=== PATIENT | male | born 1950 | race Asian ===

== ENCOUNTER 2018-06-02 07:13 | Day surgery (SDC) | payer MEDICARE, SELFPAY ==
[2018-06-02] MEDS: PROPARACAINE 0.5% OPHTH SOL 2 DROPS EYE-OP (07:35)
[2018-06-02 07:43] VITALS: BP 185/84; PULSE 86; RESP 16; TEMP 36; O2SAT 100; BMI 25.0
[2018-06-02] MEDS: CATARACT EYE COMPOUND (10 DROPS/SYRINGE) 3 DROPS EYE-OP (07:51)
--- NOTE | 2018-06-02 08:15 | PM.PREOP ---
Pre-operative Note Interval Note Changes: No
--- NOTE | 2018-06-02 08:16 | P.OP_ITS ---
Operative Date/Time/Diagnoses Pre-op diagnosis: Cataract Left eye Post-op diagnosis: same Procedure & Clinicians Surgeon: Rito Mccormack Anesthesia Type: MAC +/- and Sedation Operative Notes Procedure in detail: Patient brought to the operating suite. Tetracaine drops placed in the left eye. Patient was prepped and draped in sterile manner. Wire lid speculum was placed in the eye. Betadine drops were placed on the eye. This was irrigated. Lidocaine jelly was placed on the eye. A paracentesis port was created with a side-port blade. 0.1 mL 1% preservative free lidocaine was injected into the anterior chamber. The anterior chamber was deepened with viscoelastic. 2.6 mm keratome was used to create a temporal clear corneal incision. Cystotome and Utrata forceps were used to create continuous tear capsulorrhexis. Balanced salt solution was used to hydro dissect the nucleus. The phacoemulsification handpiece was inserted and the nucleus was removed using the stop and chop technique. The irrigation aspiration handpiece was inserted and the remaining cortex was removed. Anterior chamber was deepened with viscoelastic. An Peter ZCB00 intraocular lens with a power of 19.5 was injected into the capsular bag. Irrigation aspiration handpiece was inserted and the remaining viscoelastic was removed. Incision was hydrated with balanced salt solution and found to be leak free with pressure with Weck- Ange sponges. 0.1 mL Vigamox injected anterior chamber. 0.3 mL Kenalog 10 mg was injected subconjunctivally. Lid speculum was removed. The patient left the operating room in excellent condition. Complications: none Condition: stable Disposition: same day surgery
--- NOTE | 2018-06-02 08:16 | P.OP.PRE_ITS ---
Pre-operative Note Interval Note Changes: No
[2018-06-02] MEDS: MOXIFLOXACIN OPHTH DROPS 3 ML BOTTLE 2 DROPS INJ (08:29)
[2018-06-02] MEDS: LIDOCAINE JELLY 2% 5 ML 1 APPLIC TOP (08:29)
[2018-06-02] MEDS: CHONDROIDTIN/SOD HYALURONATE 1.05 ML SYRINGE INTRAOCULA (08:29)
[2018-06-02] MEDS: PHENYLEPHRINE/LIDOCAINE VIAL (OR) 0.2 ML EYE-OP (08:29)
[2018-06-02] MEDS: TETRACAINE 0.5% OPHTH DROPS 15 ML 2 DROPS EYE-LEFT (08:30)
[2018-06-02] MEDS: TRIAMCINOLONE 50 MG/5 ML VIAL INJ (08:30)
[2018-06-02] MEDS: BALANCED SALT IRRIG SOLN NO.2 500 ML, EPINEPHrine 1 MG IRR (08:30)
[2018-06-02 08:45] VITALS: BP 144/82; PULSE 75; RESP 16; TEMP 36.3; O2SAT 100
== END 2018-06-02 08:58 ==
PROVIDERS: Visit Provider Ophthalmology
DX: H25.12 Age-related nuclear cataract, left eye (principal); E11.9 Type 2 diabetes mellitus without complications; Z79.84 Long term (current) use of oral hypoglycemic drugs; I10 Essential (primary) hypertension; I51.9 Heart disease, unspecified
CPT/HCPCS: J0171; J2250; J3010; J3301

== ENCOUNTER → 2018-06-17 10:05 | Outpatient (CLI) | payer MEDICARE, SELFPAY ==
[2018-06-17 11:39] LABS: BUN Creatinine Ratio 18.5 (6-22); Blood Urea Nitrogen 24 mg/dL (9-20); Calcium 9.5 mg/dL (8.4-10.2); Carbon Dioxide 26 mmol/L (22-32); Chloride 104 mmol/L (98-107); Estimated Glomerular Filt Rate 54.9 mL/min (>60); Glucose 217 mg/dL (80-110); HEMOLYSIS < 15 (0-50); Potassium 4.2 mmol/L (3.4-5.1); Sodium 143 mmol/L (137-145)
== END ==
PROVIDERS: Visit Provider Internal Medicine Cardiovascular Disease
DX: I10 Essential (primary) hypertension (principal)
CPT/HCPCS: 36415; 80048

== ENCOUNTER 2018-06-23 06:12 | Day surgery (SDC) | payer MEDICARE, SELFPAY ==
[2018-06-23] MEDS: PROPARACAINE 0.5% OPHTH SOL 2 DROPS EYE-OP (07:04)
[2018-06-23 07:05] VITALS: BP 166/74; PULSE 75; RESP 16; TEMP 36.4; O2SAT 100; BMI 24.3
[2018-06-23] MEDS: CATARACT EYE COMPOUND (10 DROPS/SYRINGE) 3 DROPS EYE-OP (07:10)
[2018-06-23] MEDS: LIDOCAINE JELLY 2% 5 ML 1 APPLIC TOP (07:58)
[2018-06-23] MEDS: CHONDROIDTIN/SOD HYALURONATE 1.05 ML SYRINGE INTRAOCULA (07:58)
[2018-06-23] MEDS: TETRACAINE 0.5% OPHTH DROPS 15 ML 2 DROPS EYE-RIGHT (07:59)
[2018-06-23] MEDS: TRIAMCINOLONE 50 MG/5 ML VIAL INJ (07:59)
[2018-06-23] MEDS: PHENYLEPHRINE/LIDOCAINE VIAL (OR) 0.2 ML EYE-OP (07:59)
[2018-06-23] MEDS: MOXIFLOXACIN OPHTH DROPS 3 ML BOTTLE 2 DROPS INJ (07:59)
[2018-06-23] MEDS: BALANCED SALT IRRIG SOLN NO.2 500 ML, EPINEPHrine 1 MG IRR (08:00)
--- NOTE | 2018-06-23 08:13 | P.OP.PRE_ITS ---
Pre-operative Note Interval Note Changes: No
--- NOTE | 2018-06-23 08:13 | PM.PREOP ---
Pre-operative Note Interval Note Changes: No
--- NOTE | 2018-06-23 08:14 | P.OP_ITS ---
Operative Date/Time/Diagnoses Pre-op diagnosis: Cataract Right eye Post-op diagnosis: same Procedure & Clinicians Procedure: Cataract Surgery Same procedure as scheduled: Yes Surgeon: Rito Mccormack Anesthesia Type: MAC +/- and Sedation Operative Notes Procedure in detail: Patient brought to the operating suite. Tetracaine drops placed in the right eye. Patient was prepped and draped in sterile manner. Wire lid speculum was placed in the eye. Betadine drops were placed on the eye. This was irrigated. Lidocaine jelly was placed on the eye. A paracentesis port was created with a side-port blade. 0.1 mL 1% preservative free lidocaine was injected into the anterior chamber. The anterior chamber was deepened with viscoelastic. 2.6 mm keratome was used to create a temporal clear corneal incision. Cystotome and Utrata forceps were used to create continuous tear capsulorrhexis. Balanced salt solution was used to hydro dissect the nucleus. The phacoemulsification handpiece was inserted and the nucleus was removed using the stop and chop technique. The irrigation aspiration handpiece was inserted and the remaining cortex was removed. Anterior chamber was deepened with viscoelastic. An Peter ZCB00 intraocular lens with a power of 18.5 was injected into the capsular bag. Irrigation aspiration handpiece was inserted and the remaining viscoelastic was removed. Incision was hydrated with balanced salt solution and found to be leak free with pressure with Weck- Ange sponges. 0.1 mL Vigamox injected anterior chamber. 0.3 mL Kenalog 10 mg was injected subconjunctivally. Lid speculum was removed. The patient left the operating room in excellent condition. Complications: none Condition: stable Disposition: same day surgery
[2018-06-23 08:21] VITALS: BP 130/70; PULSE 72; RESP 16; TEMP 36.6; O2SAT 100
--- NOTE | 2018-06-23 08:24 | SUR.PHASEII ---
son in law called, pt assisted to dress left in stable condition.
== END 2018-06-23 08:25 ==
LOC: OR 06:14
PROVIDERS: Visit Provider Ophthalmology
DX: H25.11 Age-related nuclear cataract, right eye (principal); E11.9 Type 2 diabetes mellitus without complications; Z79.84 Long term (current) use of oral hypoglycemic drugs; I10 Essential (primary) hypertension; I51.9 Heart disease, unspecified
CPT/HCPCS: J0171; J2250; J3010; J3301

== ENCOUNTER → 2018-12-11 06:41 | Outpatient (CLI) | payer MEDICARE, SELFPAY ==
[2018-12-11 08:53] LABS: Hemoglobin A1C% w Est Avg Glu 8.6 % (4.0-6.0)
[2018-12-11 09:07] LABS: Alanine Aminotransferase 70 IU/L (21-72); Albumin 4.4 g/dL (3.5-5.0); Albumin Globulin Ratio 1.5 (1.0-2.8); Alkaline Phosphatase 60 U/L (38-126); Aspartate Aminotransferase 55 IU/L (17-59); BUN Creatinine Ratio 13.9 (6-22); Bilirubin Total 0.6 mg/dL (0.2-1.3); Blood Urea Nitrogen 25 mg/dL (9-20); Calcium 9.4 mg/dL (8.4-10.2); Carbon Dioxide 22 mmol/L (22-32); Chloride 107 mmol/L (98-107); Estimated Glomerular Filt Rate 37.6 mL/min (>60); Globulin 2.9 g/dL (1.7-4.1); Glucose 94 mg/dL (80-110); HEMOLYSIS < 15 (0-50); Potassium 4.5 mmol/L (3.4-5.1); Sodium 141 mmol/L (137-145); Total Protein 7.3 g/dL (6.3-8.2)
== END ==
PROVIDERS: Visit Provider Student in an Organized Health Care Education/Training Program
DX: I10 Essential (primary) hypertension (principal); I25.10 Atherosclerotic heart disease of native coronary artery without angina pectoris; E11.65 Type 2 diabetes mellitus with hyperglycemia
CPT/HCPCS: 36415; 80053; 83036

== ENCOUNTER → 2020-10-06 08:36 | Outpatient (CLI) | payer MEDICARE, OTHER, SELFPAY ==
[2020-10-06] MEDS: COVID-19 VACC #1, MRNA(MOD) 100 MCG/0.5 ML VIAL IM (08:43)
== END ==
PROVIDERS: PCP Student in an Organized Health Care Education/Training Program; Visit Provider Internal Medicine
DX: Z23 Encounter for immunization (principal)
CPT/HCPCS: 0011A; 91301

== ENCOUNTER → 2020-11-03 08:44 | Outpatient (CLI) | payer MEDICARE, OTHER, SELFPAY ==
[2020-11-03] MEDS: COVID-19 VACC #2, MRNA(MOD) 100 MCG/0.5 ML VIAL IM (08:49)
== END ==
PROVIDERS: PCP Student in an Organized Health Care Education/Training Program; Visit Provider Internal Medicine
DX: Z23 Encounter for immunization (principal)
CPT/HCPCS: 0012A; 91301

== ENCOUNTER → 2021-12-13 08:02 | Outpatient (CLI) | payer OTHER, SELFPAY ==
[2021-12-13 08:29] LABS: Add Manual Diff / Slide Review NO; Basophils Absolute Auto 100 /uL (0-100); Basophils Percent Auto 1.3 % (0-2); Eosinophils Absolute Auto 400 /uL (0-450); Eosinophils Percent Auto 8.3 % (2-4); Hematocrit 32.3 % (41-53); Hemoglobin 10.9 g/dL (13.5-17.5); Lymphocytes Absolute Auto 800 /uL (1100-4500); Lymphocytes Percent Auto 16.3 % (25-40); Mean Corpuscular HGB Conc 33.7 % (30-36); Mean Corpuscular Hemoglobin 30.9 PG (26-34); Mean Corpuscular Volume 91.8 fL (80-100); Monocytes Absolute Auto 500 /uL (0-900); Monocytes Percent Auto 10.8 % (3-14); Neutrophils Absolute Auto 3100 /uL (1500-7000); Neutrophils Percent Auto 63.3 % (50-75); Platelet Count 170 X10^3/uL (150-400); Red Blood Cell Count 3.51 X10^6/uL (4.5-5.9); Red Cell Distribution Width 13.1 % (11.6-14.8); White Blood Cell Count 4.9 X10^3/uL (4.5-11.0)
[2021-12-13 09:19] LABS: Blood Urea Nitrogen 35 mg/dL (9-20); Calcium 9.2 mg/dL (8.4-10.2); Carbon Dioxide 21 mmol/L (22-32); Chloride 110 mmol/L (98-107); Cholesterol 79 mg/dL (140-199); Estimated Glomerular Filt Rate 27.7 mL/min (>60); Glucose 104 mg/dL (80-110); HDL Cholesterol 48 mg/dL (40-60); HEMOLYSIS 49 (0-50); LDL Cholesterol Calculated 20 mg/dL (<100); Potassium 4.3 mmol/L (3.4-5.1); Sodium 142 mmol/L (137-145); Triglycerides 56 mg/dL (35-150)
== END ==
PROVIDERS: PCP Student in an Organized Health Care Education/Training Program; Referring Provider Internal Medicine Cardiovascular Disease; Visit Provider Internal Medicine Cardiovascular Disease
DX: I25.10 Atherosclerotic heart disease of native coronary artery without angina pectoris (principal); E78.5 Hyperlipidemia, unspecified
CPT/HCPCS: 36415; 80048; 80061; 85025

== ENCOUNTER → 2022-11-08 06:54 | Outpatient (CLI) | payer OTHER, SELFPAY ==
[2022-11-08 08:06] LABS: Add Manual Diff / Slide Review NO; Basophils Absolute Auto 100 /uL (0-100); Basophils Percent Auto 0.9 % (0-2); Eosinophils Absolute Auto 400 /uL (0-450); Hematocrit 37.2 % (41-53); Hemoglobin 12.2 g/dL (13.5-17.5); Lymphocytes Absolute Auto 800 /uL (1100-4500); Lymphocytes Percent Auto 9.5 % (25-40); Mean Corpuscular HGB Conc 32.7 % (30-36); Mean Corpuscular Hemoglobin 29.6 PG (26-34); Mean Corpuscular Volume 90.5 fL (80-100); Monocytes Absolute Auto 600 /uL (0-900); Monocytes Percent Auto 7.2 % (3-14); Neutrophils Absolute Auto 6400 /uL (1500-7000); Neutrophils Percent Auto 77.4 % (50-75); Platelet Count 143 X10^3/uL (150-400); Red Blood Cell Count 4.11 X10^6/uL (4.5-5.9); White Blood Cell Count 8.2 X10^3/uL (4.5-11.0)
[2022-11-08 08:12] LABS: Hemoglobin A1C% w Est Avg Glu 12.5 % (4.0-6.0)
[2022-11-08 08:16] LABS: Alanine Aminotransferase 27 IU/L (<50); Albumin 4.3 g/dL (3.5-5.0); Albumin Globulin Ratio 1.6 (1.0-2.8); Alkaline Phosphatase 68 U/L (38-126); Aspartate Aminotransferase 23 IU/L (17-59); BUN Creatinine Ratio 12.4 (6-22); Bilirubin Total 0.8 mg/dL (0.2-1.3); Blood Urea Nitrogen 24 mg/dL (9-20); Calcium 8.7 mg/dL (8.4-10.2); Carbon Dioxide 23 mmol/L (22-32); Chloride 102 mmol/L (98-107); Cholesterol 86 mg/dL (140-199); Estimated Glomerular Filt Rate 36 mL/min (>60); Globulin 2.7 g/dL (1.7-4.1); Glucose 230 mg/dL (80-110); HDL Cholesterol 50 mg/dL (40-60); HEMOLYSIS < 15 (0-50); LDL Cholesterol Calculated 18 mg/dL (<100); Potassium 4.1 mmol/L (3.4-5.1); Sodium 136 mmol/L (137-145); Triglycerides 89 mg/dL (35-150)
[2022-11-08 08:42] LABS: Creatinine Urine Random 46.4 mg/dL
[2022-11-08 09:00] LABS: Microalbumin Urine Random 31.6 mg/dL (0-1.6)
== END ==
PROVIDERS: PCP Student in an Organized Health Care Education/Training Program; Referring Provider Student in an Organized Health Care Education/Training Program; Visit Provider Student in an Organized Health Care Education/Training Program
DX: E11.59 Type 2 diabetes mellitus with other circulatory complications (principal); E78.5 Hyperlipidemia, unspecified; I10 Essential (primary) hypertension
CPT/HCPCS: 36415; 80053; 80061; 82043; 82570; 83036; 85025

== ENCOUNTER → 2022-12-10 07:05 | Outpatient (CLI) | payer OTHER, SELFPAY ==
[2022-12-10 10:25] LABS: Vitamin D 25 Hydroxy (D3) 42.7 ng/mL (30.0-100.0)
[2022-12-12 05:22] LABS: Fructosamine 494 umol/L (0-285)
== END ==
PROVIDERS: PCP Student in an Organized Health Care Education/Training Program; Referring Provider Student in an Organized Health Care Education/Training Program; Visit Provider Student in an Organized Health Care Education/Training Program
DX: N18.32 Chronic kidney disease, stage 3b (principal); E11.59 Type 2 diabetes mellitus with other circulatory complications; Z79.899 Other long term (current) drug therapy
CPT/HCPCS: 36415; 82306; 82985

== ENCOUNTER → 2023-03-13 06:45 | Outpatient (CLI) | payer OTHER, SELFPAY ==
[2023-03-14 05:54] LABS: Labcorp Hemoglobin (Hb) A1c 11.2 % (4.8-5.6)
== END ==
PROVIDERS: Student in an Organized Health Care Education/Training Program; PCP Pediatrics; Referring Provider Pediatrics; Visit Provider Pediatrics
DX: E11.59 Type 2 diabetes mellitus with other circulatory complications (principal)
CPT/HCPCS: 36415; 83036

== ENCOUNTER → 2023-08-22 08:53 | Outpatient (CLI) | payer OTHER, SELFPAY ==
[2023-08-22 09:59] LABS: Add Manual Diff / Slide Review NO; Basophils Absolute Auto 100 /uL (0-100); Basophils Percent Auto 1.8 % (0-2); Eosinophils Absolute Auto 300 /uL (0-450); Eosinophils Percent Auto 5.3 % (2-4); Hematocrit 35.7 % (41-53); Lymphocytes Absolute Auto 600 /uL (1100-4500); Mean Corpuscular HGB Conc 33.8 % (30-36); Mean Corpuscular Hemoglobin 30.2 PG (26-34); Mean Corpuscular Volume 89.3 fL (80-100); Monocytes Absolute Auto 500 /uL (0-900); Monocytes Percent Auto 8.1 % (3-14); Neutrophils Absolute Auto 4400 /uL (1500-7000); Neutrophils Percent Auto 74.8 % (50-75); Platelet Count 204 X10^3/uL (150-400); Red Blood Cell Count 3.99 X10^6/uL (4.5-5.9); Red Cell Distribution Width 12.6 % (11.6-14.8); White Blood Cell Count 5.8 X10^3/uL (4.5-11.0)
[2023-08-22 10:27] LABS: BUN Creatinine Ratio 12.9 (6-22); Blood Urea Nitrogen 24 mg/dL (9-20); Calcium 9.8 mg/dL (8.4-10.2); Carbon Dioxide 23 mmol/L (22-32); Chloride 97 mmol/L (98-107); Estimated Glomerular Filt Rate 38 mL/min (>60); Glucose 452 mg/dL (80-110); HEMOLYSIS < 15 (0-50); Potassium 4.7 mmol/L (3.4-5.1); Sodium 133 mmol/L (137-145)
[2023-08-22 11:17] LABS: Hemoglobin A1C% w Est Avg Glu > 14.0 % (4.0-6.0)
== END ==
PROVIDERS: PCP Family Medicine; Referring Provider Family Medicine; Visit Provider Family Medicine
DX: N18.9 Chronic kidney disease, unspecified (principal); E11.59 Type 2 diabetes mellitus with other circulatory complications; D63.1 Anemia in chronic kidney disease; N18.32 Chronic kidney disease, stage 3b; E78.5 Hyperlipidemia, unspecified; I10 Essential (primary) hypertension; I25.10 Atherosclerotic heart disease of native coronary artery without angina pectoris
CPT/HCPCS: 36415; 80048; 83036; 85025

== ENCOUNTER 2023-11-23 10:46 | Emergency (ER) | payer OTHER, SELFPAY ==
[2023-11-23] VITALS (9 sets, daily range): BP systolic 122–168; BP diastolic 57–73; PULSE 71–97; RESP 18–28; TEMP 36.8; O2SAT 96–100; BMI 22.8
--- NOTE | 2023-11-23 10:54 | DI.RAD.S_ITS ---
PROCEDURE: XR CHEST 1V INDICATIONS: chest pain TECHNIQUE: One view of the chest was acquired. COMPARISON: None. FINDINGS: The patient is rotated to the left for this study. Surgical changes and devices: Sternotomy wires and mediastinal clips are seen. Lungs and pleura: An incomplete inspiratory result is noted, causing a crowded appearance to the lung markings. No focal infiltrates are seen. No pneumothorax or significant pleural effusions are seen. Mediastinum: Mediastinal contours appear normal. Heart size is normal. Bones and chest wall: No suspicious bony lesions. Age-appropriate bony degenerative changes are seen. Overlying soft tissues appear unremarkable. IMPRESSION: Limited portable chest examination, without a significant cardiopulmonary abnormality identified. Postoperative and degenerative changes are seen. Dictated by: Irving Moreland M.D. on 11/23/2023 at 10:20 Approved by: Irving Moreland M.D. on 11/23/2023 at 10:21
--- NOTE | 2023-11-23 11:27 | ED_ITS ---
HPI - General Adult General Chief complaint: Weakness Stated complaint: unable to walk fever loss of appetite Time Seen by Provider: 11/23/23 10:54 Source: patient and family Mode of arrival: Wheelchair History of Present Illness HPI narrative: Patient is a 73-year-old insulin-dependent diabetic male with high blood pressure he was here for evaluation of dizziness. He states that the symptoms started this morning. It was not a room spinning sensation just more of a lightheadedness. He also reports a loss of his appetite and a fever. He denies headache, vision changes, sore throat, sinus congestion, chest pain, palpitations, abdominal pain, nausea vomiting, urinary symptoms, change in bowel habits, rash. He has never had symptoms like this in the past. He states his symptoms are worse when he stands up and better when he is lying down. Related Data Home Medications Medication Instructions Recorded Confirmed aspirin 81 mg tablet,delayed 81 mg PO DAILY 06/02/18 11/18/23 release (Aspir-) triamcinolone acetonide 0.1 % 1 applic topical DAILY 11/12/22 11/18/23 topical cream ferrous sulfate 325 mg (65 mg 325 mg PO DAILY 03/17/23 11/18/23 iron) tablet insulin U-500 syringe-needle 1/2 03/17/23 11/18/23 mL 31 gauge x 15/64 (BD Insulin Syringe U-500) pen needle, diabetic 31 gauge x 03/17/23 11/18/2311/28 (1st Tier Unifine Pentips Plus) Previous Rx's Medication Instructions Recorded Insulin regular sliding scale See Rx Instructions .Route 11/12/22 .COMPLEX #1 ea OneTouch Verio test strips (blood #200 ea 12/17/22 sugar diagnostic) amlodipine 10 mg tablet 10 mg PO DAILY #90 tabs 08/22/23 atorvastatin 80 mg tablet 80 mg PO BEDTIME #90 tabs 08/22/23 cholecalciferol (vitamin D3) 50 50 mcg PO DAILY #90 caps 08/22/23 mcg (2,000 unit) capsule clopidogrel 75 mg tablet 75 mg PO DAILY #90 tabs 08/22/23 glipizide 2.5 mg tablet, extended 2.5 mg PO DAILY diabetes #90 tabs 08/22/23 release 24 hr metoprolol succinate 50 mg 50 mg PO DAILY #90 tabs 08/22/23 tablet,extended release 24 hr insulin NPH isoph U-100 human 100 18 unit (0.18 mL) SUBCUT BID #30 mL 11/18/23 unit/mL subcutaneous suspension (Novolin N NPH U-100 Insulin isophane) insulin regular human 100 unit/mL 12 unit (0.12 mL) SUBCUT TIDWMEAL 11/18/23 injection solution (Novolin R diabetes #30 mL Regular U-100 Insulin) Allergies Allergy/AdvReac Type Severity Reaction Status Date / Time No Known Drug Allergies Allergy Verified 11/18/23 10:46 Review of Systems Review of Systems ROS Unobtainable: All systems reviewed & are unremarkable except as noted in HPI and below Patient History Medical History CKD stage 3 secondary to diabetes Type 2 diabetes mellitus with hyperglycemia, with long-term current use of insulin CKD stage G3b/A3, GFR 30-44 and albumin creatinine ratio >300 mg/g ASVD (arteriosclerotic vascular disease) Atherosclerotic heart disease Surgical History (Updated 06/22/19 @ 10:10 by Octavia Souza CMA) Anesthesia Cataract (~2017) History of quadruple bypass (~04/2000) Social History marital status: household members: spouse and family pets and animals: No education level: college occupational status: other current occupational exposures/hazards: No (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) maria isabel/lutheran: Yazdanism seatbelt use: always Smoking Status: Never smoker alcohol intake: current substance use type: does not use during the past year weight has: remained stable Type(s) of exercise: walking frequency: 3-4 times per week duration: 30-45 minutes/day additional social history: Alcohol intake: Rare/Occasional Physical activities: Gardening/yard work Smoking Status: Never smoker alcohol intake frequency: holidays/special occasions only Substance Use Type: does not use Exam Initial Vital Signs Initial Vital Signs: Vital Signs Temperature 98.2 F 11/23/23 11:00 Pulse Rate 97 H 11/23/23 11:00 Respiratory Rate 28 H 11/23/23 11:00 Blood Pressure 168/73 H 11/23/23 11:00 Pulse Oximetry 100 11/23/23 11:00 Oxygen Delivery Method Room Air 11/23/23 11:00 Const General: cooperative, comfortable and No ill appearing HENIL Head: normal to inspection and normocephalic Resp Effort & Inspection: normal respiratory effort Auscultation: clear to auscultation bilaterally Cardio Rate: regular rate Rhythm: regular rhythm GI Inspection: normal to inspection and non-distended Skin General: no rashes or lesions noted Neuro General: patient alert, patient awake, patient oriented x3 and moves all extremities Cognition: normal cognition Speech: speech normal Extrem General: normal to inspection and capillary refill normal Course Orders Ordered: ED Orders 11/23/23 10:20 Complete Blood Count AUTO DIFF Stat Comprehensive Metabolic Panel Stat Lactate (Lactic Acid) Stat Lipase Stat Magnesium Stat PTT Partial Thromboplastin Brian Stat Procalcitonin Stat Prothrombin Time INR Stat Troponin & CK Cardiac Panel Stat 11/23/23 10:30 Covid-19 + FLU A/B + RSV - PCR Stat 11/23/23 10:52 Urinalysis and Microscopic Stat 11/23/23 10:54 XR chest 1V Stat 11/23/23 10:59 Urine Culture Stat 11/23/23 11:38 EKG-12 Lead Stat 11/23/23 12:00 Blood Culture Stat Discontinued Medications Aspirin (Aspirin 81 Mg Chew Tab) 324 mg PO NOW ONE Stop: 11/23/23 10:55 Sodium Chloride (Normal Saline 0.9%) 1,000 mls @ 1,000 mls/hr IV BOLUS ONE Stop: 11/23/23 12:31 Last Infusion: 11/23/23 13:00 Dose: Infused Documented By: Admin: 11/23/23 11:46 Dose: 1,000 mls/hr Documented By: HIRO Vital Signs Vital signs: Vital Signs - 8 hr 11/23/23 11:00 11/23/23 11:06 11/23/23 11:30 Temperature 98.2 F Pulse Rate 97 H 84 82 Respiratory Rate 28 H Blood Pressure 168/73 H Pulse Oximetry 100 98 96 Oxygen Delivery Method Room Air 11/23/23 12:00 11/23/23 12:30 11/23/23 13:00 Temperature Pulse Rate 75 73 74 Respiratory Rate 18 18 19 Blood Pressure Pulse Oximetry 99 99 100 Oxygen Delivery Method Medical Decision Making Lab Data 11/23/23 10:20 11/23/23 10:20 Labs: Lab Results 11/23/23 11/23/23 11/23/23 Range/Units 10:20 10:30 10:52 WBC 9.5 (4.5-11.0) X10^3/uL RBC 4.22 L (4.5-5.9) X10^6/uL Hgb 13.0 L (13.5-17.5) g/dL Hct 38.8 L (41-53) % MCV 91.9 (80-100) fL MCH 30.7 (26-34) PG MCHC 33.4 (30-36) % RDW 13.0 (11.6-14.8) % Plt Count 177 (150-400) X10^3/uL Neut % (Auto) 94.6 H (50-75) % Lymph % (Auto) 1.8 L (25-40) % [place] % (Auto) 3.1 (3-14) % Eos % (Auto) 0.3 L (2-4) % Baso % (Auto) 0.2 (0-2) % Neut # (Auto) 9000 H (7660-4265) /uL Lymph # (Auto) 200 L (0678-4002) /uL [place] # (Auto) 300 (0-900) /uL Eos # (Auto) 0 (0-450) /uL Baso # (Auto) 0 (0-100) /uL PT 11.6 (9.4-12.5) SECONDS INR 1.0 (0.9-1.3) APTT 30 (25.1-36.5) SECONDS Sodium 132 L (137-145) mmol/L Potassium 4.1 (3.4-5.1) mmol/L Chloride 100 (98-107) mmol/L Carbon Dioxide 26 (22-32) mmol/L BUN 27 H (9-20) mg/dL Creatinine 2.06 H (0.66-1.25) mg/dL Estimated GFR 33 L (>60) mL/min BUN/Creatinine Ratio 13.1 (6-22) Glucose 390 H (80-110) mg/dL Lactate 1.8 (0.7-2.1) mmol/L Calcium 9.3 (8.4-10.2) mg/dL Magnesium 2.1 (1.6-2.3) mg/dL Total Bilirubin 0.7 (0.2-1.3) mg/dL AST 25 (17-59) IU/L ALT 23 (<50) IU/L Alkaline Phosphatase 141 H (38-126) U/L Total Creatine Kinase 122 (55-170) U/L Troponin I 0.014 (0.01-0.034) ng/mL Total Protein 7.8 (6.3-8.2) g/dL Albumin 4.1 (3.5-5.0) g/dL Globulin 3.7 (1.7-4.1) g/dL Albumin/Globulin Ratio 1.1 (1.0-2.8) Lipase 159 (23-300) U/L Procalcitonin 1.21 H (<0.5) ng/mL Urine Color Yellow Urine Appearance Clear Urine pH 7.0 (4.5-8.0) Ur Specific [place] 1.010 (1.000-1.035) Urine Protein 1+ H (Negative) Urine Glucose (UA) 3+ H (Negative) g/dL Urine Ketones Trace H (NEGATIVE) Urine Occult Blood 2+ H (Negative) Urine Nitrate Negative (Negative) Urine Bilirubin Negative (NEGATIVE) Urine Urobilinogen 0.2 (0.2) E.U./dL Ur Leukocyte Esterase Negative (NEGATIVE) Urine RBC 5-10/hpf H (0-5/HPF) Urine WBC 0-1/hpf (0-5/HPF) Ur Squamous Epith Cells None seen (0-5/HPF) Amorphous Sediment 1+ Urine Bacteria None seen (None) Ur Culture Indicated? Cult not indicated Vol Urine Centrifuged 10ml (spun) SARS-CoV-2 (PCR) Negative (Negative) Influenza A (RT-PCR) Flu a negative (NEGATIVE) Influenza B (RT-PCR) Flu b negative (NEGATIVE) RSV (PCR) Negative (Negative) Imaging Data Chest x-ray: Radiologist's Impression: PROCEDURE: XR CHEST 1V INDICATIONS: chest pain TECHNIQUE: One view of the chest was acquired. COMPARISON: None. FINDINGS: The patient is rotated to the left for this study. Surgical changes and devices: Sternotomy wires and mediastinal clips are seen. Lungs and pleura: An incomplete inspiratory result is noted, causing a crowded appearance to the lung markings. No focal infiltrates are seen. No pneumothorax or significant pleural effusions are seen. Mediastinum: Mediastinal contours appear normal. Heart size is normal. Bones and chest wall: No suspicious bony lesions. Age-appropriate bony degenerative changes are seen. Overlying soft tissues appear unremarkable. IMPRESSION: Limited portable chest examination, without a significant cardiopulmonary abnormality identified. Postoperative and degenerative changes are seen. ECG Data Attestation: I personally reviewed and interpreted this ECG as follows: Interpretation: Sinus rhythm Ventricular rate 80 Normal axis LVH Nonspecific ST T wave changes MDM Narrative Medical decision making narrative: Labs appear well. EKG is unremarkable. After fluids patient was able to ambulate without difficulty. He states that his lightheadedness is much better. Low suspicion for CVA/TIA. Low suspicion for ACS. Low suspicion for arrhythmia all as the cause of his symptoms. Potentially a degree of dehydration. Patient is safe for discharge home. Have him continue to take all of his medications. He was given return precautions. He expressed understanding and agreement. Discharge Plan Departure Patient Disposition: Home Clinical Impression: Postural lightheadedness Instructions: DI for Dizziness-Nonvertigo Activity Restrictions/Additional Instructions: Recommend that you continue to take all of your medications as directed. Contact your primary care doctor for a follow-up. Return to the emergency department for new or worsening symptoms. Prescriptions: No Action (DME) OneTouch Verio test strips Strip See Rx Instructions .Route Qty: 200 11RF Rx Instructions: As directed amlodipine 10 mg tablet 10 mg PO DAILY Qty: 90 3RF atorvastatin 80 mg tablet 80 mg PO BEDTIME Qty: 90 3RF cholecalciferol (vitamin D3) 50 mcg (2,000 unit) capsule 50 mcg PO DAILY Qty: 90 3RF clopidogrel 75 mg tablet 75 mg PO DAILY Qty: 90 3RF metoprolol succinate 50 mg tablet extended release 24 hr 50 mg PO DAILY Qty: 90 3RF glipizide 2.5 mg tablet extended release 24hr 2.5 mg PO DAILY Qty: 90 3RF Rx Instructions: must take with food triamcinolone acetonide 0.1 % cream 1 applic topical DAILY Insulin regular sliding scale See Rx Instructions .ROUTE .COMPLEX Qty: 1 0RF Rx Instructions: 2 units for every 50mg/dL of glucose over 200 ferrous sulfate 325 mg (65 mg iron) tablet 325 mg PO DAILY (DME) pen needle, diabetic [1st Tier Unifine Pentips Plus] 31 gauge x 3/16 needle See Rx Instructions .Route Rx Instructions: Checking Blood Sugar BID every other day (DME) BD Insulin Syringe U-500 1/2 mL 31 gauge x 15/64 syringe See Rx Instructions .Route Rx Instructions: Checking BS BID every other day Novolin N NPH U-100 Insulin 100 unit/mL suspension 18 unit SUBCUT BID Qty: 30 3RF Novolin R Regular U100 Insulin 100 unit/mL solution 12 unit SUBCUT TIDWMEAL MDD 30 units Qty: 30 11RF Rx Instructions: before meals aspirin [Aspir-81] 81 mg Tablet,Delayed Release (Dr/Ec) 81 mg PO DAILY Referrals: Urbano Estes DO [Primary Care Provider] - Stand Alone Forms: Patient Portal/API
[2023-11-23 11:42] LABS: Add Manual Diff / Slide Review NO; Basophils Absolute Auto 0 /uL (0-100); Basophils Percent Auto 0.2 % (0-2); Eosinophils Absolute Auto 0 /uL (0-450); Eosinophils Percent Auto 0.3 % (2-4); Hematocrit 38.8 % (41-53); Lymphocytes Absolute Auto 200 /uL (1100-4500); Lymphocytes Percent Auto 1.8 % (25-40); Mean Corpuscular HGB Conc 33.4 % (30-36); Mean Corpuscular Hemoglobin 30.7 PG (26-34); Mean Corpuscular Volume 91.9 fL (80-100); Monocytes Absolute Auto 300 /uL (0-900); Monocytes Percent Auto 3.1 % (3-14); Neutrophils Absolute Auto 9000 /uL (1500-7000); Neutrophils Percent Auto 94.6 % (50-75); Platelet Count 177 X10^3/uL (150-400); Red Blood Cell Count 4.22 X10^6/uL (4.5-5.9); White Blood Cell Count 9.5 X10^3/uL (4.5-11.0)
[2023-11-23] MEDS: SODIUM CHLORIDE 0.9% 1,000 ML 1000 ML IV (11:46)
[2023-11-23 11:53] LABS: Prothrombin Time 11.6 SECONDS (9.4-12.5)
[2023-11-23 11:55] LABS: Lactate (Lactic Acid) 1.8 mmol/L (0.7-2.1)
[2023-11-23 11:56] LABS: Alanine Aminotransferase 23 IU/L (<50); Albumin 4.1 g/dL (3.5-5.0); Albumin Globulin Ratio 1.1 (1.0-2.8); Alkaline Phosphatase 141 U/L (38-126); Aspartate Aminotransferase 25 IU/L (17-59); BUN Creatinine Ratio 13.1 (6-22); Bilirubin Total 0.7 mg/dL (0.2-1.3); Blood Urea Nitrogen 27 mg/dL (9-20); Calcium 9.3 mg/dL (8.4-10.2); Carbon Dioxide 26 mmol/L (22-32); Chloride 100 mmol/L (98-107); Creatine Kinase 122 U/L (55-170); Estimated Glomerular Filt Rate 33 mL/min (>60); Globulin 3.7 g/dL (1.7-4.1); Glucose 390 mg/dL (80-110); HEMOLYSIS < 15 (0-50); Lipase 159 U/L (23-300); Magnesium 2.1 mg/dL (1.6-2.3); PTT Partial Thromboplastin Tim 30 SECONDS (25.1-36.5); Potassium 4.1 mmol/L (3.4-5.1); Sodium 132 mmol/L (137-145); Total Protein 7.8 g/dL (6.3-8.2)
[2023-11-23 12:08] LABS: Troponin I 0.014 ng/mL (0.01-0.034)
[2023-11-23 12:13] LABS: Procalcitonin 1.21 ng/mL (<0.5)
[2023-11-23 12:18] LABS: Appearance Urine UA CLEAR; Bilirubin Urine UA NEGATIVE (NEGATIVE); Color Urine UA YELLOW; Glucose Urine UA 3+ g/dL (Negative); Ketones Urine UA TRACE (NEGATIVE); Leukocyte Esterase Urine UA NEGATIVE (NEGATIVE); Nitrite Urine UA NEGATIVE (Negative); Occult Blood Urine UA 2+ (Negative); Protein Urine UA 1+ (Negative); Urobilinogen Urine UA 0.2 E.U./dL (0.2)
[2023-11-23 12:34] LABS: Amorphous Sediment Urine 1+; Bacteria Urine None Seen; Culture Indicated Urine Cult Not Indicated; RBC Urine 5-10/HPF (0-5/HPF); Squamous Epithelial Cell Urine None Seen (0-5/HPF); Urine Volume 10mL (spun); WBC Urine 0-1/HPF (0-5/HPF)
[2023-11-23 12:41] LABS: Influenza A - CEPHEID Flu A NEGATIVE (NEGATIVE); Influenza B - CEPHEID Flu B NEGATIVE (NEGATIVE); Respiratory Syncytial Virus Negative (Negative)
[2023-11-23 12:44] LABS: COVID-19 CEPHEID 4-PLEX PCR Negative (Negative)
== END 2023-11-23 14:17 | disposition home or self-care (01) ==
PROVIDERS: Emergency Provider Emergency Medicine; PCP Family Medicine
DX: R42 Dizziness and giddiness (principal); R07.9 Chest pain, unspecified; Z20.822 Contact with and (suspected) exposure to COVID-19
CPT/HCPCS: 0241U; 36415; 71045; 80053; 81001; 82550; 83605; 83690; 83735; 84145; 84484; 85025; 85610; 85730; 87040; 87077; 87086; 87186; 93005; 93010; 99284

== ENCOUNTER 2023-12-20 07:58 | Inpatient (IN) | payer OTHER, SELFPAY ==
[2023-12-20] VITALS (18 sets, daily range): BP systolic 112–168; BP diastolic 51–120; PULSE 67–125; RESP 16–44; TEMP 36.1–39.2; O2SAT 89–100; BMI 21.8; BMI 21.1
--- NOTE | 2023-12-20 08:08 | ED_ITS ---
HPI - Weakness General Chief complaint: Weakness Stated complaint: fever, sent by [facility], low bp Time Seen by Provider: 12/20/23 08:08 History of Present Illness HPI Narrative: Patient is a 73-year-old male history of hypertension hyperlipidemia uncontrolled diabetes, chronic kidney disease presents today with ongoing weakness and cyclic fevers. Patient spent September and October in the [facility] it was reported that he drank excessive amounts of alcohol while he was there when he returned in November he started noticing cyclic fevers. However a temperature was never actually taken fevers documented by patient's 's hand on his forehead. He denies any weight he sometimes gets cold and. No cough no nausea vomiting or abdominal pain. No chest pain. Here with son-in-law. Patient was seen in the ED for November for high blood pressure and dizziness at that time he was reporting loss of appetite and fever. He has no focal deficits. Thought he was dehydrated and he was ultimately discharged home. He has also seen his PCP with a hemoglobin A1c greater than 14. Patient has no specific complaints today except for ongoing weakness and cyclic fevers which are actually undocumented. He initially went to the walk-in clinic found to be mildly hypotensive and sent to the ED for further evaluation. Related Data Home Medications Medication Instructions Recorded Confirmed aspirin 81 mg tablet,delayed 81 mg PO DAILY 06/02/18 12/20/23 release (Aspir-) triamcinolone acetonide 0.1 % 1 applic topical DAILY 11/12/22 12/20/23 topical cream ferrous sulfate 325 mg (65 mg 325 mg PO DAILY 03/17/23 12/20/23 iron) tablet insulin U-500 syringe-needle /2 03/17/23 12/20/23 mL 31 gauge x 15/64 (BD Insulin Syringe U-500) pen needle, diabetic 31 gauge x 03/17/23 12/20/23 3/16 (1st Tier Unifine Pentips Plus) losartan 25 mg tablet 25 mg PO DAILY 12/20/23 12/20/23 Previous Rx's Medication Instructions Recorded Insulin regular sliding scale See Rx Instructions .Route 11/12/22 .COMPLEX #1 ea OneTouch Verio test strips (blood #200 ea 12/17/22 sugar diagnostic) amlodipine 10 mg tablet 10 mg PO DAILY #90 tabs 08/22/23 atorvastatin 80 mg tablet 80 mg PO BEDTIME #90 tabs 08/22/23 cholecalciferol (vitamin D3) 50 50 mcg PO DAILY #90 caps 08/22/23 mcg (2,000 unit) capsule clopidogrel 75 mg tablet 75 mg PO DAILY #90 tabs 08/22/23 glipizide 2.5 mg tablet, extended 2.5 mg PO DAILY diabetes #90 tabs 08/22/23 release 24 hr metoprolol succinate 50 mg 50 mg PO DAILY #90 tabs 08/22/23 tablet,extended release 24 hr insulin NPH isoph U-100 human 100 18 unit (0.18 mL) SUBCUT BID #30 mL 11/18/23 unit/mL subcutaneous suspension (Novolin N NPH U-100 Insulin isophane) insulin regular human 100 unit/mL 12 unit (0.12 mL) SUBCUT TIDWMEAL 11/18/23 injection solution (Novolin R diabetes #30 mL Regular U-100 Insulin) Allergies Allergy/AdvReac Type Severity Reaction Status Date / Time No Known Drug Allergies Allergy Verified 12/20/23 08:25 Patient History Medical History CKD stage 3 secondary to diabetes Type 2 diabetes mellitus with hyperglycemia, with long-term current use of insulin CKD stage G3b/A3, GFR 30-44 and albumin creatinine ratio >300 mg/g ASVD (arteriosclerotic vascular disease) Atherosclerotic heart disease Surgical History Anesthesia Cataract (~2017) History of quadruple bypass (~04/2000) Social History marital status: household members: spouse and family pets and animals: No education level: college occupational status: other current occupational exposures/hazards: 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) maria isabel/tenriism: Mosque seatbelt use: always Smoking Status: Never smoker alcohol intake: current substance use type: does not use during the past year weight has: remained stable Type(s) of exercise: walking frequency: 3-4 times per week duration: 30-45 minutes/day additional social history: Alcohol intake: Rare/Occasional Physical activities: Gardening/yard work Smoking Status: Never smoker alcohol intake frequency: holidays/special occasions only Substance Use Type: does not use Exam Initial Vital Signs Initial Vital Signs: Vital Signs Pulse Rate 95 H 12/20/23 08:06 Pulse Oximetry 99 12/20/23 08:06 GENERAL: Alert 73-year-old male appears mildly weak and in [no acute] distress. HEENT: Head atraumatic,EOMI, pupils reactive, face symmetric, [moist] mucous membranes CARDIOVASCULAR: Regular rate and rhythm without murmurs, rubs or gallops. RESPIRATORY: Breath sounds equal bilaterally, no wheezes rales or rhonchi. ABDOMEN: Soft, nontender. Normoactive bowel sounds all 4 quadrants. No guarding or rebound. EXTREMITIES: Normal range of motion, no clubbing or edema. Neurovascularly intact NEUROLOGICAL: Alert and oriented x4.Normal gait and speech. Cranial nerves II through XII grossly intact. [Good [id number], good [id number], strength equal bilaterally, no dysarthria or aphasia, sensation in tact to soft touch bilaterally, no visual changes, no facial droop] SKIN: Warm, dry, no laceration, no petechiae, no rashes or lesions. Course Orders Ordered: ED Orders 12/20/23 08:11 CT head/brain wo con Stat XR chest 1V Stat EKG-12 Lead Stat 12/20/23 08:12 A1C [Hemoglobin A1C% w Est Avg Glu] Stat Complete Blood Count AUTO DIFF Stat Comprehensive Metabolic Panel Stat ETOH [Ethanol (ETOH)] Stat Lactate (Lactic Acid) Stat Monotest Stat Procalcitonin Stat Respiratory Panel (Film Array) Stat Troponin & CK Cardiac Panel Stat 12/20/23 08:48 Blood Culture Stat 12/20/23 08:52 Parasite Exam,Blood Stat 12/20/23 09:30 Urinalysis and Microscopic Stat Urine Culture Stat Sodium Chloride (Normal Saline 0.9%) 1,000 mls @ 1,000 mls/hr IV CONT NAVEED Last Infusion: 12/20/23 10:03 Dose: Infused Documented By: Admin: 12/20/23 08:47 Dose: 1,000 mls/hr Documented By: DAMIR Discontinued Medications Sodium Chloride (Normal Saline 0.9%) 1,000 mls @ 1,000 mls/hr IV BOLUS ONE Stop: 12/20/23 10:41 Last Infusion: 12/20/23 11:00 Dose: Infused Documented By: Admin: 12/20/23 10:13 Dose: 1,000 mls/hr Documented By: DAMIR Ceftriaxone Sodium 1,000 mg/ (Sodium Chloride) 100 mls @ 200 mls/hr IV NOW ONE Stop: 12/20/23 09:48 Last Infusion: 12/20/23 10:33 Dose: Infused Documented By: Admin: 12/20/23 10:00 Dose: 200 mls/hr Documented By: RUBEN Acetaminophen (Ofirmev) 1,000 mg in 100 mls @ 400 mls/hr IV NOW ONE Stop: 12/20/23 10:31 Last Infusion: 12/20/23 11:00 Dose: Infused Documented By: Admin: 12/20/23 10:30 Dose: 400 mls/hr Documented By: DAMIR Vital Signs Vital signs: Vital Signs - 8 hr 12/20/23 08:06 12/20/23 08:07 12/20/23 08:07 Temperature Pulse Rate 95 H 94 H Respiratory Rate Blood Pressure 128/59 L Pulse Oximetry 99 100 Oxygen Delivery Method 12/20/23 08:11 12/20/23 08:36 12/20/23 08:37 Temperature 98.7 F Pulse Rate 86 83 Respiratory Rate 16 25 H Blood Pressure 128/59 L 154/68 H Pulse Oximetry 100 100 Oxygen Delivery Method Room Air 12/20/23 08:37 12/20/23 09:00 12/20/23 09:00 Temperature Pulse Rate 82 90 Respiratory Rate 28 H 24 Blood Pressure 162/73 H Pulse Oximetry 100 100 Oxygen Delivery Method 12/20/23 09:30 12/20/23 09:30 12/20/23 10:00 Temperature Pulse Rate 95 H Respiratory Rate 23 Blood Pressure 168/79 H 166/120 H Pulse Oximetry 100 Oxygen Delivery Method Room Air 12/20/23 10:00 12/20/23 10:01 Temperature 99.7 F H Pulse Rate 125 H Respiratory Rate 30 H Blood Pressure Pulse Oximetry 94 Oxygen Delivery Method Room Air MDM - Weakness Lab Data 12/20/23 08:12 12/20/23 08:12 Labs: Lab Results 12/20/23 12/20/23 Range/Units 08:12 09:30 WBC 12.0 H (4.5-11.0) X10^3/uL RBC 3.79 L (4.5-5.9) X10^6/uL Hgb 11.2 L (13.5-17.5) g/dL Hct 34.4 L (41-53) % MCV 90.7 (80-100) fL MCH 29.6 (26-34) PG MCHC 32.7 (30-36) % RDW 12.8 (11.6-14.8) % Plt Count 187 (150-400) X10^3/uL Neut % (Auto) 81.4 H (50-75) % Lymph % (Auto) 4.2 L (25-40) % Graham % (Auto) 13.7 (3-14) % Eos % (Auto) 0.2 L (2-4) % Baso % (Auto) 0.5 (0-2) % Neut # (Auto) 9800 H (2623-5936) /uL Lymph # (Auto) 500 L (2828-6241) /uL Graham # (Auto) 1600 H (0-900) /uL Eos # (Auto) 0 (0-450) /uL Baso # (Auto) 100 (0-100) /uL Sodium 134 L (137-145) mmol/L Potassium 3.6 (3.4-5.1) mmol/L Chloride 101 (98-107) mmol/L Carbon Dioxide 21 L (22-32) mmol/L BUN 31 H (9-20) mg/dL Creatinine 2.10 H (0.66-1.25) mg/dL Estimated GFR 32 L (>60) mL/min BUN/Creatinine Ratio 14.8 (6-22) Glucose 261 H (80-110) mg/dL Hemoglobin A1c 13.0 H (4.0-6.0) % Lactate 1.5 (0.7-2.1) mmol/L Calcium 9.0 (8.4-10.2) mg/dL Total Bilirubin 0.8 (0.2-1.3) mg/dL AST 57 (17-59) IU/L ALT 62 H (<50) IU/L Alkaline Phosphatase 169 H (38-126) U/L Total Creatine Kinase 71 (55-170) U/L Troponin I 0.018 (0.01-0.034) ng/mL Total Protein 7.4 (6.3-8.2) g/dL Albumin 3.6 (3.5-5.0) g/dL Globulin 3.8 (1.7-4.1) g/dL Albumin/Globulin Ratio 0.9 L (1.0-2.8) Procalcitonin 5.49 H (<0.5) ng/mL Urine Color Yellow Urine Appearance Clear Urine pH 6.0 (4.5-8.0) Ur Specific [place] 1.015 (1.000-1.035) Urine Protein 2+ H (Negative) Urine Glucose (UA) 2+ H (Negative) g/dL Urine Ketones 1+ H (NEGATIVE) Urine Occult Blood 1+ H (Negative) Urine Nitrate Negative (Negative) Urine Bilirubin Negative (NEGATIVE) Urine Urobilinogen 0.2 (0.2) E.U./dL Ur Leukocyte Esterase Negative (NEGATIVE) Urine RBC None seen (0-5/HPF) Urine WBC 1-5/hpf (0-5/HPF) Ur Squamous Epith Cells None seen (0-5/HPF) Amorphous Sediment 1+ Urine Bacteria Occasional (0-1) (None) Ur Culture Indicated? Specimen cultured Vol Urine Centrifuged 10ml (spun) Ethyl Alcohol < 10 ( - 10) mg/dL Chlamy pneumoniae PCR Not detected (Not Detect) Adenovirus (PCR) Not detected (Not Detect) B.parapertussis DNA PCR Not detected (Not Detecte) Coronavirus OC43 (PCR) Not detected (Not Detect) Coronavirus HKU1 (PCR) Not detected (Not Detect) Coronavirus 229E (PCR) Detected H (Not Detect) SARS-CoV-2 (PCR) Not detected (Not Detecte) Coronavirus NL63 (PCR) Not detected (Not Detect) Monoscreen Negative (Negative) Human Metapneumovir PCR Not detected (Not Detect) Influenza Type A (PCR) Not detected (Not Detect) Influenza Type B (PCR) Not detected (Not Detect) M. pneumoniae (PCR) Not detected (Not Detect) Parainfluenza 1 (PCR) Not detected (Not Detect) Parainfluenza 2 (PCR) Not detected (Not Detect) Parainfluenza 3 (PCR) Not detected (Not Detect) Parainfluenza 4 (PCR) Not detected (Not Detect) RSV (PCR) Not detected (Not Detect) Entero/Rhino (PCR) Not detected (Not Detect) Imaging Data Chest x-ray: Radiologist Impression: PROCEDURE: XR CHEST 1V INDICATIONS: weakness fever TECHNIQUE: One view of the chest was acquired. COMPARISON: [facility], CR, XR CHEST 1V, 11/23/2023, 11:07. FINDINGS: Surgical changes and devices: Sternotomy and CABG. Lungs and pleura: Lungs are clear. No pleural effusions or pneumothorax. Mediastinum: Mediastinal contours appear normal. Heart size is likely mildly enlarged. Bones and chest wall: No suspicious bony lesions. Overlying soft tissues appear unremarkable. Prominent nipple shadows. IMPRESSION: No acute cardiopulmonary abnormality is seen. Dictated by: Zeb Marie M.D. on 12/20/2023 at 8:50 CT scan - head: Radiologist Impression: PROCEDURE: CT HEAD/BRAIN WO CON INDICATIONS: unsteady TECHNIQUE: Noncontrast 4.5 mm thick angled axial sections acquired from the foramen magnum to the vertex, with coronal and sagittal reformats. For radiation dose reduction, the following was used: automated exposure control, adjustment of mA and/or kV according to patient size. COMPARISON: None. FINDINGS: Image quality: Diagnostic. CSF spaces: Basal cisterns are patent. No extra-axial fluid collections. The ventricles are symmetric in size and shape. Brain: No intracranial bleeds or masses. There is cerebral volume loss for age, with resultant ventricular and sulcal prominence. There are periventricular and deep white matter chronic small vessel ischemic changes. There is intracranial internal carotid artery atherosclerosis. Skull and face: Calvarium and visualized facial bones appear intact, without suspicious lesions. Posterior scalp contusion without underlying fracture. Sinuses: Visualized sinuses and mastoids are clear. Arrested pneumatization of the mastoid air cells. IMPRESSION: No acute intracranial pathology. Dictated by: Zeb Marie M.D. on 12/20/2023 at 8:48 ECG Data Attestation: I personally reviewed and interpreted this ECG as follows: Interpretation: Sinus rhythm rate 83 MA interval 148 QRS 94 QTC 148 T-wave inversions noted in V1 V2 with some ST depression in lead 1 consistent from previous EKGs no acute elevations or sign of ischemia MDM Narrative Medical decision making narrative: MDM CC: Fevers weakness Complicating co-morbidities: Uncontrolled diabetes hypertension hyperlipidemia CAD Corroborating data: [ ] Data collected from: Family Medical records reviewed: Upon review blood cultures were positive for Klebsiella pneumonia on November 22. Further review reports that had difficulty contacting patient and a letter was sent, Differential considered: Infectious disease traveling fever, such as denying, malaria, brucellosis, sepsis, Exam documented above, pertinent findings include: Generally weak no meningeal signs awake responsive Lab Test results independently reviewed as above. Pertinent findings: WBC 12.0, hemoglobin 11.2, hematocrit 34.4, platelets 187, sodium 134, potassium 3.6, chloride 101 carbon carbon dioxide 21, BUN 31, creatinine 2.1, previously 2.0, glucose 261, A1c 13, bilirubin 0.8 AST 57 ALT 62, alk-phos 169, troponin 0.018, procalcitonin 5.49 Respiratory panel positive for coronavirus Independently reviewed EKG as above: Persistent T-wave inversions in V1 and V2 remain unchanged Imaging studies independently reviewed: Head CT no acute abnormality chest x- ray no acute abnormalities Consultations: Dr. Curry accepts patient Treatments: IV fluids and Rocephin (based on previous cultures pansensitive Klebsiella) Re-evaluations: [ ] Discussion: Patient likely has ongoing Klebsiella bacteremia from November 22. He is persistently elevated procalcitonin which has increased from 1.5-5.4. Family reports he has not been on antibiotics. This is likely the cause of his ongoing weakness and fever. He is also positive for coronavirus without evidence of pneumonia. This is also likely contributing to his ongoing weakness and fever. Although malaria smear has been sent it is probably unlikely. He is chronic kidney disease which is slightly worse today. No meningeal signs. He is starting to have shakes and get low-grade temp he is given IV Tylenol. Discharge Plan Departure Patient Disposition: Admitted As Inpatient Clinical Impression: Bacteremia Admit Date/Time: 12/20/23 10:24 Admit Provider: Finn Curry
--- NOTE | 2023-12-20 08:11 | DI.CT.S_ITS ---
PROCEDURE: CT HEAD/BRAIN WO CON INDICATIONS: unsteady TECHNIQUE: Noncontrast 4.5 mm thick angled axial sections acquired from the foramen magnum to the vertex, with coronal and sagittal reformats. For radiation dose reduction, the following was used: automated exposure control, adjustment of mA and/or kV according to patient size. COMPARISON: None. FINDINGS: Image quality: Diagnostic. CSF spaces: Basal cisterns are patent. No extra-axial fluid collections. The ventricles are symmetric in size and shape. Brain: No intracranial bleeds or masses. There is cerebral volume loss for age, with resultant ventricular and sulcal prominence. There are periventricular and deep white matter chronic small vessel ischemic changes. There is intracranial internal carotid artery atherosclerosis. Skull and face: Calvarium and visualized facial bones appear intact, without suspicious lesions. Posterior scalp contusion without underlying fracture. Sinuses: Visualized sinuses and mastoids are clear. Arrested pneumatization of the mastoid air cells. IMPRESSION: No acute intracranial pathology. Dictated by: Zeb Marie M.D. on 12/20/2023 at 8:48 Approved by: Zeb Marie M.D. on 12/20/2023 at 8:50
--- NOTE | 2023-12-20 08:11 | DI.RAD.S_ITS ---
PROCEDURE: XR CHEST 1V INDICATIONS: weakness fever TECHNIQUE: One view of the chest was acquired. COMPARISON: [facility], CR, XR CHEST 1V, 11/23/2023, 11:07. FINDINGS: Surgical changes and devices: Sternotomy and CABG. Lungs and pleura: Lungs are clear. No pleural effusions or pneumothorax. Mediastinum: Mediastinal contours appear normal. Heart size is likely mildly enlarged. Bones and chest wall: No suspicious bony lesions. Overlying soft tissues appear unremarkable. Prominent nipple shadows. IMPRESSION: No acute cardiopulmonary abnormality is seen. Dictated by: Zeb Marie M.D. on 12/20/2023 at 8:50 Approved by: Zeb Marie M.D. on 12/20/2023 at 8:50
[2023-12-20 08:28] LABS: Add Manual Diff / Slide Review NO; Basophils Absolute Auto 100 /uL (0-100); Basophils Percent Auto 0.5 % (0-2); Eosinophils Absolute Auto 0 /uL (0-450); Eosinophils Percent Auto 0.2 % (2-4); Hematocrit 34.4 % (41-53); Hemoglobin 11.2 g/dL (13.5-17.5); Lymphocytes Absolute Auto 500 /uL (1100-4500); Lymphocytes Percent Auto 4.2 % (25-40); Mean Corpuscular HGB Conc 32.7 % (30-36); Mean Corpuscular Hemoglobin 29.6 PG (26-34); Mean Corpuscular Volume 90.7 fL (80-100); Monocytes Absolute Auto 1600 /uL (0-900); Monocytes Percent Auto 13.7 % (3-14); Neutrophils Absolute Auto 9800 /uL (1500-7000); Neutrophils Percent Auto 81.4 % (50-75); Platelet Count 187 X10^3/uL (150-400); Red Blood Cell Count 3.79 X10^6/uL (4.5-5.9); Red Cell Distribution Width 12.8 % (11.6-14.8)
[2023-12-20 08:33] LABS: Alanine Aminotransferase 62 IU/L (<50); Albumin 3.6 g/dL (3.5-5.0); Albumin Globulin Ratio 0.9 (1.0-2.8); Alkaline Phosphatase 169 U/L (38-126); Aspartate Aminotransferase 57 IU/L (17-59); BUN Creatinine Ratio 14.8 (6-22); Bilirubin Total 0.8 mg/dL (0.2-1.3); Blood Urea Nitrogen 31 mg/dL (9-20); Carbon Dioxide 21 mmol/L (22-32); Chloride 101 mmol/L (98-107); Creatine Kinase 71 U/L (55-170); Estimated Glomerular Filt Rate 32 mL/min (>60); Ethanol (ETOH) < 10 mg/dL; Globulin 3.8 g/dL (1.7-4.1); Glucose 261 mg/dL (80-110); HEMOLYSIS < 15 (0-50); Lactate (Lactic Acid) 1.5 mmol/L (0.7-2.1); Potassium 3.6 mmol/L (3.4-5.1); Sodium 134 mmol/L (137-145); Total Protein 7.4 g/dL (6.3-8.2)
[2023-12-20 08:34] LABS: Monotest Negative (Negative)
[2023-12-20 08:44] LABS: Troponin I 0.018 ng/mL (0.01-0.034)
[2023-12-20] MEDS: SODIUM CHLORIDE 0.9% 1,000 ML 1000 ML IV ×2 (08:47→10:13)
[2023-12-20 08:48] LABS: Procalcitonin 5.49 ng/mL (<0.5)
[2023-12-20 09:19] LABS: Adenovirus Not Detected (Not Detect); B. parapertussis Not Detected (Not Detecte); Bordetella pertussis Not Detected (Not Detect); Chlamydophila pneumoniae Not Detected (Not Detect); Coronavirus 229E Detected (Not Detect); Coronavirus HKU1 Not Detected (Not Detect); Coronavirus NL 63 Not Detected (Not Detect); Coronavirus OC43 Not Detected (Not Detect); Human Metapneumovirus Not Detected (Not Detect); Human Rhinovirus/Enterovirus Not Detected (Not Detect); Influenza A Not Detected (Not Detect); Influenza B Not Detected (Not Detect); Mycoplasma pneumoniae Not Detected (Not Detect); Parainfluenza Virus 1 Not Detected (Not Detect); Parainfluenza Virus 2 Not Detected (Not Detect); Parainfluenza Virus 3 Not Detected (Not Detect); Parainfluenza Virus 4 Not Detected (Not Detect); Respiratory Syncytial Virus Not Detected (Not Detect); SARS- CoV-2 Not Detected (Not Detecte)
[2023-12-20] MEDS: cefTRIAXone 1,000 MG in SODIUM CHLORIDE 0.9% 100 ML 200 MG IV (10:00)
[2023-12-20 10:10] LABS: Appearance Urine UA CLEAR; Bilirubin Urine UA NEGATIVE (NEGATIVE); Color Urine UA YELLOW; Glucose Urine UA 2+ g/dL (Negative); Ketones Urine UA 1+ (NEGATIVE); Leukocyte Esterase Urine UA NEGATIVE (NEGATIVE); Nitrite Urine UA NEGATIVE (Negative); Occult Blood Urine UA 1+ (Negative); Protein Urine UA 2+ (Negative); Specific Gravity Urine UA 1.015 (1.000-1.035); Urobilinogen Urine UA 0.2 E.U./dL (0.2)
[2023-12-20 10:16] LABS: Amorphous Sediment Urine 1+; Bacteria Urine Occasional (0-1); Culture Indicated Urine Specimen Cultured; RBC Urine None Seen (0-5/HPF); Squamous Epithelial Cell Urine None Seen (0-5/HPF); Urine Volume 10mL (spun); WBC Urine 1-5/HPF (0-5/HPF)
[2023-12-20] MEDS: ACETAMINOPHEN IV 1,000 MG/100 ML VIAL 400 MG IV (10:30)
--- NOTE | 2023-12-20 11:39 | PC.NURSE ---
Assisted INSOLVENCY PRACTITIONER Shea to clean pt's nora area, change bedding, put on brief.
--- NOTE | 2023-12-20 12:05 | PM.HP.1 ---
History of Present Illness History of Present Illness Date Patient Seen: 12/20/23 Time Patient Seen: 12:30 Chief complaint: fever, sent by [facility], low bp Narrative: The patient was a 73-year-old male with a history of hypertension, hyperlipidemia, poorly-controlled diabetes, and chronic kidney disease as well as a CABG who presents with fevers and fatigue. The patient was seen in November for fatigue and blood cultures at that time were positive for Klebsiella. Due to his ongoing traveling, contact with him after that encounter was not made. The patient had been in the [facility] for 2 months, was back in November and then went to [place] for a week. He has had intermittent fever since Friday. He denies any skin rash, or lesions. He also denies endemic malaria in the [facility] where he was he has nocturia and polyuria but denies any cloudy urine. He has been having intermittent high fevers for several days controlled for a short time with Tylenol. Blood cultures in November for positive for Klebsiella. He likely has BPH and urinary retention. He denies any mental status changes. No respiratory symptoms including rhinorrhea, cough or shortness a breath. A respiratory PCR was positive for non COVID coronavirus in the ED. He is in droplet isolation. He denies any ill contacts or family. 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/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: Roman Catholic seatbelt use: always Smoking Status: Never smoker alcohol intake: current substance use type: does not use during the past year weight has: remained stable Type(s) of exercise: walking frequency: 3-4 times per week duration: 30-45 minutes/day additional social history: Alcohol intake: Rare/Occasional Physical activities: Gardening/yard work Meds Home Medications and Allergies Home Medications Medication Instructions Recorded Confirmed Type aspirin 81 mg tablet,delayed 81 mg PO DAILY 06/02/18 12/20/23 History release (Aspir-) Insulin regular sliding scale See Rx Instructions .Route 11/12/22 12/20/23 Rx .COMPLEX #1 ea triamcinolone acetonide 0.1 % 1 applic topical DAILY 11/12/22 12/20/23 History topical cream OneTouch Verio test strips (blood #200 ea 12/17/22 12/20/23 Rx sugar diagnostic) ferrous sulfate 325 mg (65 mg 325 mg PO DAILY 03/17/23 12/20/23 History iron) tablet insulin U-500 syringe-needle 1/2 03/17/23 12/20/23 History mL 31 gauge x 15/64 (BD Insulin Syringe U-500) pen needle, diabetic 31 gauge x 03/17/23 12/20/23 History 316 (1st Tier Unifine Pentips Plus) amlodipine 10 mg tablet 10 mg PO DAILY #90 tabs 08/22/23 12/20/23 Rx atorvastatin 80 mg tablet 80 mg PO BEDTIME #90 tabs 08/22/23 12/20/23 Rx cholecalciferol (vitamin D3) 50 50 mcg PO DAILY #90 caps 08/22/23 12/20/23 Rx mcg (2,000 unit) capsule clopidogrel 75 mg tablet 75 mg PO DAILY #90 tabs 08/22/23 12/20/23 Rx glipizide 2.5 mg tablet, extended 2.5 mg PO DAILY diabetes #90 tabs 08/22/23 12/20/23 Rx release 24 hr metoprolol succinate 50 mg 50 mg PO DAILY #90 tabs 08/22/23 12/20/23 Rx tablet,extended release 24 hr insulin NPH isoph U-100 human 100 18 unit (0.18 mL) SUBCUT BID #30 mL 11/18/23 12/20/23 Rx unit/mL subcutaneous suspension (Novolin N NPH U-100 Insulin isophane) insulin regular human 100 unit/mL 12 unit (0.12 mL) SUBCUT TIDWMEAL 11/18/23 12/20/23 Rx injection solution (Novolin R diabetes #30 mL Regular U-100 Insulin) losartan 25 mg tablet 25 mg PO DAILY 12/20/23 12/20/23 History Allergies Allergy/AdvReac Type Severity Reaction Status Date / Time No Known Drug Allergies Allergy Verified 12/20/23 08:25 Review of Systems Review of Systems Narrative: All else reviewed and otherwise unremarkable except as noted in the history and physical. Exam Vital Signs (past 8 hours): - 12/20/23 08:06 12/20/23 08:07 12/20/23 08:07 Temperature Pulse Rate 95 H 94 H Respiratory Rate Blood Pressure 128/59 L Pulse Oximetry 99 100 Oxygen Delivery Method Oxygen Flow Rate 12/20/23 08:11 12/20/23 08:36 12/20/23 08:37 Temperature 98.7 F Pulse Rate 86 83 Respiratory Rate 16 25 H Blood Pressure 128/59 L 154/68 H Pulse Oximetry 100 100 Oxygen Delivery Method Room Air Oxygen Flow Rate 12/20/23 08:37 12/20/23 09:00 12/20/23 09:00 Temperature Pulse Rate 82 90 Respiratory Rate 28 H 24 Blood Pressure 162/73 H Pulse Oximetry 100 100 Oxygen Delivery Method Oxygen Flow Rate 12/20/23 09:30 12/20/23 09:30 12/20/23 10:00 Temperature Pulse Rate 95 H Respiratory Rate 23 Blood Pressure 168/79 H 166/120 H Pulse Oximetry 100 Oxygen Delivery Method Room Air Oxygen Flow Rate 12/20/23 10:00 12/20/23 10:01 12/20/23 10:30 Temperature 99.7 F H Pulse Rate 125 H 125 H Respiratory Rate 30 H 32 H Blood Pressure Pulse Oximetry 94 Oxygen Delivery Method Room Air Oxygen Flow Rate 12/20/23 10:36 12/20/23 10:36 12/20/23 11:00 Temperature Pulse Rate 122 H Respiratory Rate 37 H Blood Pressure 128/63 120/60 Pulse Oximetry 92 89 L Oxygen Delivery Method Nasal Cannula Oxygen Flow Rate 2 12/20/23 11:00 12/20/23 11:30 12/20/23 11:30 Temperature Pulse Rate 105 H 101 H Respiratory Rate 44 H 30 H Blood Pressure 119/64 Pulse Oximetry 92 94 Oxygen Delivery Method Nasal Cannula Oxygen Flow Rate 2 Oxygen Delivery Method Nasal Cannula Oxygen Flow Rate 2 Narrative Exam Narrative: NAD, alert and oriented, fluent speech, calm. Normocephalic skull, EOMI, anicteric sclera, symmetric pupils. Oropharynx unremarkable, no droop. Neck supple, midline trachea, no adenopathy. Lungs clear, normal rate and effort. Heart regular, no murmur gallop or rub. Abdomen is soft, non distended and non tender. Extremities are free of edema. Skin is free of rash or lesions. Joints are not swollen or deformed. Judgment appears to be normal. Objective Imaging Chest x-ray: Radiologist's impression: Negative. CT scan - head: Radiologist's impression: Negative. Labs 12/20/23 08:12 12/20/23 08:12 Labs: Laboratory Results - last 24 hr 12/20/23 12/20/23 08:12 09:30 WBC 12.0 H RBC 3.79 L Hgb 11.2 L Hct 34.4 L MCV 90.7 MCH 29.6 MCHC 32.7 RDW 12.8 Plt Count 187 Neut % (Auto) 81.4 H Lymph % (Auto) 4.2 L [place] % (Auto) 13.7 Eos % (Auto) 0.2 L Baso % (Auto) 0.5 Neut # (Auto) 9800 H Lymph # (Auto) 500 L [place] # (Auto) 1600 H Eos # (Auto) 0 Baso # (Auto) 100 Sodium 134 L Potassium 3.6 Chloride 101 Carbon Dioxide 21 L BUN 31 H Creatinine 2.10 H Estimated GFR 32 L BUN/Creatinine Ratio 14.8 Glucose 261 H Hemoglobin A1c 13.0 H Lactate 1.5 Calcium 9.0 Total Bilirubin 0.8 AST 57 ALT 62 H Alkaline Phosphatase 169 H Total Creatine Kinase 71 Troponin I 0.018 Total Protein 7.4 Albumin 3.6 Globulin 3.8 Albumin/Globulin Ratio 0.9 L Procalcitonin 5.49 H Urine Color Yellow Urine Appearance Clear Urine pH 6.0 Ur Specific [place] 1.015 Urine Protein 2+ H Urine Glucose (UA) 2+ H Urine Ketones 1+ H Urine Occult Blood 1+ H Urine Nitrate Negative Urine Bilirubin Negative Urine Urobilinogen 0.2 Ur Leukocyte Esterase Negative Urine RBC None seen Urine WBC 1-5/hpf Ur Squamous Epith Cells None seen Amorphous Sediment 1+ Urine Bacteria Occasional (0-1) Ur Culture Indicated? Specimen cultured Vol Urine Centrifuged 10ml (spun) Ethyl Alcohol < 10 Chlamy pneumoniae PCR Not detected Adenovirus (PCR) Not detected B.parapertussis DNA PCR Not detected Coronavirus OC43 (PCR) Not detected Coronavirus HKU1 (PCR) Not detected Coronavirus 229E (PCR) Detected H SARS-CoV-2 (PCR) Not detected Coronavirus NL63 (PCR) Not detected Monoscreen Negative Human Metapneumovir PCR Not detected Influenza Type A (PCR) Not detected Influenza Type B (PCR) Not detected M. pneumoniae (PCR) Not detected Parainfluenza 1 (PCR) Not detected Parainfluenza 2 (PCR) Not detected Parainfluenza 3 (PCR) Not detected Parainfluenza 4 (PCR) Not detected RSV (PCR) Not detected Entero/Rhino (PCR) Not detected Assessment & Plan Assessment & Plan narrative: 1. Febrile illness with recent Klebsiella bacteremia which was untreated, present on admission and active. 2. Non COVID coronavirus with acute hypoxic respiratory failure, present on admission and active. 3. High suspicion of Klebsiella bacteremia, present on admission and active. 4. CAD with bypass grafting, present on admission and stable. 5. Very ?poorly controlled diabetes mellitus 2 with A1c of 13.0, present on admission and active. 6. Hyperlipidemia, present on admission and active. 7. Chronic kidney disease stage 3, present on admission and active. 8. Essential hypertension, present on admission and active. Plan: -follow up blood cultures, continue ceftriaxone 2 g IV Q 24 hours based on Klebsiella cultures. -consider CT of the abdomen. -fever control with Tylenol. -droplet isolation supportive care for coronavirus. -wean oxygen as able. -continue chronic medications for CAD and hyperlipidemia as well as hypertension. -monitor renal function. This patient appears to be moderately ill and has multiple comorbid conditions and place him high risk for adverse outcomes of infection, specifically CAD and uncontrolled diabetes. There is an expectation for a 2 midnight necessity of medical services for his acute medical condition. Time Spent With Patient Time with patient: 30 to 49 minutes with 50% spent counseling/coordinating care Quality VTE Deep Vein Thrombosis/Pulmonary Embolism Present on Admission: No MIPS - Admit I confirm the patient?s Advance Care Plan is present, Code status is documented, Surrogate decision maker is in patient?s record [If Yes, STOP here]: Yes MIPS - Meds 'Current medications' to include all prescriptions, [id number] products, herbals, cannabis/cannabidiol products, and vitamin/mineral/dietary (nutritional) supplements. I have utilized all available resources to obtain, update, or review the patient?s current medications. [If Yes, STOP here]: Yes
[2023-12-20] MEDS: HEPARIN 5,000 UNIT/ML VIAL 5000 UNIT SUBCUT ×2 (12:16→21:25)
[2023-12-20] MEDS: ACETAMINOPHEN 325 MG TABLET 650 MG PO (12:17)
[2023-12-20] MEDS: CHOLECALCIFEROL (VITAMIN D3) 1,000 UNIT TABLET 2000 UNIT PO (12:54)
[2023-12-20] MEDS: FERROUS SULFATE 325 MG TABLET PO (12:54)
[2023-12-20] MEDS: CLOPIDOGREL 75 MG TABLET PO (12:54)
[2023-12-20] MEDS: ASPIRIN EC 81 MG TABLET PO (12:54)
[2023-12-20] MEDS: INSULIN LISPRO 100 UNIT/ML 3ML VIAL SUBCUT ×2 (17:39→21:30)
[2023-12-20] MEDS: SODIUM CHLORIDE 0.9% 1,000 ML 84 ML IV (17:44)
[2023-12-20 21:18] LABS: Acinetobacter calcoa-baumannii Not Detected (Not Detect); Bacteroides fragilis Not Detected (Not Detect); CTX-M Resistance Not Detected (Not Detect); Candida albicans Not Detected (Not Detect); Candida auris Not Detected (Not Detect); Candida glabrata Not Detected (Not Detect); Candida krusei Not Detected (Not Detect); Candida parapsilosis Not Detected (Not Detect); Candida tropicalis Not Detected (Not Detect); Cryptococcus neoformans/gatti Not Detected (Not Detect); Enterobacter cloacae complex Not Detected (Not Detect); Enterobacterales Detected (Not Detect); Enterococcus faecalis Not Detected (Not Detect); Enterococcus faecium Not Detected (Not Detect); Haemophilus influenzae Not Detected (Not Detect); IMP Resistance Not Detected (Not Detect); KPC Resistance Not Detected (Not Detect); Klebsiella aerogenes Not Detected (Not Detect); Listeria monocytogenes Not Detected (Not Detect); NDM Resistance Not Detected (Not Detect); Neisseria meningitidis Not Detected (Not Detect); OXA-48-like Resistance Not Detected (Not Detect); Proteus species Not Detected (Not Detect); Pseudomonas aeruginosa Not Detected (Not Detect); Salmonella species Not Detected (Not Detect); Serratia marcescens Not Detected (Not Detect); Staphylococcus epidermidis Not Detected (Not Detect); Staphylococcus lugdunensis Not Detected (Not Detect); Staphylococcus species Not Detected (Not Detect); Stenotrophomonas maltophilia Not Detected (Not Detect); Streptococcus agalactiae (Gr B Not Detected (Not Detect); Streptococcus pneumonia Not Detected (Not Detect); Streptococcus pyogenes (Gr A) Not Detected (Not Detect); Streptococcus species Not Detected (Not Detect); VIM Resistance Not Detected (Not Detect); mcr-1 Resistance Not Detected (Not Detect)
[2023-12-20] MEDS: ATORVASTATIN 20 MG TABLET 80 MG PO (21:25)
[2023-12-20] MEDS: DOCUSATE 100 MG CAPSULE PO (21:25)
[2023-12-20] MEDS: INSULIN NPH 100 UNIT/ML 10ML VIAL 18 UNIT SUBCUT (21:29)
[2023-12-21] VITALS (9 sets, daily range): BP systolic 111–152; BP diastolic 52–75; PULSE 78–95; RESP 17–22; TEMP 36.8–38.6; O2SAT 95–98
[2023-12-21] MEDS: ACETAMINOPHEN 325 MG TABLET 650 MG PO (00:44)
[2023-12-21 04:44] LABS: Add Manual Diff / Slide Review NO; Basophils Absolute Auto 0 /uL (0-100); Basophils Percent Auto 0.3 % (0-2); Eosinophils Absolute Auto 0 /uL (0-450); Eosinophils Percent Auto 0.2 % (2-4); Hematocrit 28.7 % (41-53); Hemoglobin 9.6 g/dL (13.5-17.5); Lymphocytes Absolute Auto 300 /uL (1100-4500); Lymphocytes Percent Auto 2.8 % (25-40); Mean Corpuscular HGB Conc 33.4 % (30-36); Mean Corpuscular Volume 89.7 fL (80-100); Monocytes Absolute Auto 1500 /uL (0-900); Monocytes Percent Auto 12.2 % (3-14); Neutrophils Absolute Auto 10200 /uL (1500-7000); Neutrophils Percent Auto 84.5 % (50-75); Platelet Count 154 X10^3/uL (150-400); Red Cell Distribution Width 12.6 % (11.6-14.8); White Blood Cell Count 12.1 X10^3/uL (4.5-11.0)
[2023-12-21 04:59] LABS: BUN Creatinine Ratio 17.2 (6-22); Blood Urea Nitrogen 30 mg/dL (9-20); Calcium 8.1 mg/dL (8.4-10.2); Carbon Dioxide 20 mmol/L (22-32); Chloride 109 mmol/L (98-107); Estimated Glomerular Filt Rate 41 mL/min (>60); Glucose 79 mg/dL (80-110); HEMOLYSIS < 15 (0-50); Potassium 3.3 mmol/L (3.4-5.1); Sodium 136 mmol/L (137-145)
[2023-12-21] MEDS: SODIUM CHLORIDE 0.9% 1,000 ML 84 ML IV ×2 (05:36→17:50)
--- NOTE | 2023-12-21 07:30 | PM.PN.1 ---
Subjective Subjective Interval history: He is doing well. No URI symptoms including rhinorrhea, sore throat or cough. He has not short of breath. He denies any abdominal pain. He had a fever up to 102 overnight. Blood cultures are positive for Klebsiella, they were positive in November when he went to the emergency department. Urine is pending. He denies urinary symptoms. Exam Vital Signs (past 8 hours): - 12/21/23 00:42 12/21/23 00:42 12/21/23 00:44 Temperature 100.1 F H 100.1 F H 100.1 F H Pulse Rate 95 H Respiratory Rate 17 Blood Pressure 120/55 L Pulse Oximetry 95 Oxygen Flow Rate 12/21/23 02:00 12/21/23 05:00 12/21/23 05:44 Temperature 101.5 F H 98.3 F 98.9 F Pulse Rate 80 78 Respiratory Rate 18 18 Blood Pressure 111/52 L Pulse Oximetry 96 98 96 Oxygen Flow Rate 0 0 0 Oxygen Delivery Method Room Air Oxygen Flow Rate 0 Narrative Exam Narrative: NAD, alert and oriented. Fluent speech. Lungs are clear, normal rate and effort. Heart is regular, no murmur gallop or rub. Abdomen is soft, non distended. Extremities are free of edema. Objective Labs 12/21/23 04:22 12/21/23 04:22 Labs: Laboratory Results - last 24 hr 12/20/23 12/20/23 12/20/23 08:12 08:48 09:30 WBC 12.0 H RBC 3.79 L Hgb 11.2 L Hct 34.4 L MCV 90.7 MCH 29.6 MCHC 32.7 RDW 12.8 Plt Count 187 Neut % (Auto) 81.4 H Lymph % (Auto) 4.2 L [place] % (Auto) 13.7 Eos % (Auto) 0.2 L Baso % (Auto) 0.5 Neut # (Auto) 9800 H Lymph # (Auto) 500 L [place] # (Auto) 1600 H Eos # (Auto) 0 Baso # (Auto) 100 Sodium 134 L Potassium 3.6 Chloride 101 Carbon Dioxide 21 L BUN 31 H Creatinine 2.10 H Estimated GFR 32 L BUN/Creatinine Ratio 14.8 Glucose 261 H Hemoglobin A1c 13.0 H Lactate 1.5 Calcium 9.0 Total Bilirubin 0.8 AST 57 ALT 62 H Alkaline Phosphatase 169 H Total Creatine Kinase 71 Troponin I 0.018 Total Protein 7.4 Albumin 3.6 Globulin 3.8 Albumin/Globulin Ratio 0.9 L Procalcitonin 5.49 H Urine Color Yellow Urine Appearance Clear Urine pH 6.0 Ur Specific [place] 1.015 Urine Protein 2+ H Urine Glucose (UA) 2+ H Urine Ketones 1+ H Urine Occult Blood 1+ H Urine Nitrate Negative Urine Bilirubin Negative Urine Urobilinogen 0.2 Ur Leukocyte Esterase Negative Urine RBC None seen Urine WBC 1-5/hpf Ur Squamous Epith Cells None seen Amorphous Sediment 1+ Urine Bacteria Occasional (0-1) Ur Culture Indicated? Specimen cultured Vol Urine Centrifuged 10ml (spun) Ethyl Alcohol < 10 A.calcoaceticus-baumannii cmplx PCR Not detected Chlamy pneumoniae PCR Not detected Adenovirus (PCR) Not detected Bacteroides fragilis Not detected B.parapertussis DNA PCR Not detected Kenzie albicans (PCR) Not detected Kenzie auris (PCR) Not detected C. glabrata (PCR) Not detected C. krusei (PCR) Not detected C. parapsilosis (PCR) Not detected C. tropicalis (PCR) Not detected Coronavirus OC43 (PCR) Not detected Coronavirus HKU1 (PCR) Not detected Coronavirus 229E (PCR) Detected H SARS-CoV-2 (PCR) Not detected Coronavirus NL63 (PCR) Not detected C. neoform/gattii (PCR) Not detected Enterobacterales (PCR) Detected E. cloacae complex PCR Not detected Enterococc faecalis PCR Not detected Enterococc faecium PCR Not detected E. coli (PCR) Not detected H. influenzae (PCR) Not detected Monoscreen Negative Human Metapneumovir PCR Not detected Influenza Type A (PCR) Not detected Influenza Type B (PCR) Not detected Klebsiella aerogenes (PCR) Not detected Klebsiella oxytoca PCR Not detected Klebsiella pneumoniae Detected List. monocytogenes PCR Not detected M. pneumoniae (PCR) Not detected N. meningitidis (PCR) Not detected Parainfluenza 1 (PCR) Not detected Parainfluenza 2 (PCR) Not detected Parainfluenza 3 (PCR) Not detected Parainfluenza 4 (PCR) Not detected Proteus species (PCR) Not detected RSV (PCR) Not detected Entero/Rhino (PCR) Not detected Salmonella spp. (PCR) Not detected Serratia marcescens PCR Not detected Staphylococcus sp PCR Not detected Staph aureus (PCR) Not detected mecA/C & MREJ Resist Gene Not applicable mecA/C-Methicil Resis Gene Not applicable mcr-1 Colistin Res Gene PCR Not detected Staph epidermidis (PCR) Not detected Staph lugdunensis PCR Not detected S. maltophilia (PCR) Not detected Streptococcus sp PCR Not detected Group A Strep (PCR) Not detected Strep agalactiae (PCR) Not detected Strep pneumoniae (PCR) Not detected P. aeruginosa (PCR) Not detected Marzena/B-Vanco Res Genes Not applicable blaIMP Car res Gene PCR Not detected KPC-Carbap Res Gene PCR Not detected blaNDM Car Res Gene PCR Not detected OXA-48 Carbapenem Resis Gene (PCR) Not detected blaVIM Car Res Gene PCR Not detected CTX-M Gene Resistance (PCR) Not detected 12/21/23 04:22 WBC 12.1 H RBC 3.20 L Hgb 9.6 L Hct 28.7 L MCV 89.7 MCH 30.0 MCHC 33.4 RDW 12.6 Plt Count 154 Neut % (Auto) 84.5 H Lymph % (Auto) 2.8 L Martin % (Auto) 12.2 Eos % (Auto) 0.2 L Baso % (Auto) 0.3 Neut # (Auto) 05483 H Lymph # (Auto) 300 L Martin # (Auto) 1500 H Eos # (Auto) 0 Baso # (Auto) 0 Sodium 136 L Potassium 3.3 L Chloride 109 H Carbon Dioxide 20 L BUN 30 H Creatinine 1.74 H Estimated GFR 41 L BUN/Creatinine Ratio 17.2 Glucose 79 L D Hemoglobin A1c Lactate Calcium 8.1 L Total Bilirubin AST ALT Alkaline Phosphatase Total Creatine Kinase Troponin I Total Protein Albumin Globulin Albumin/Globulin Ratio Procalcitonin Urine Color Urine Appearance Urine pH Ur Specific [place] Urine Protein Urine Glucose (UA) Urine Ketones Urine Occult Blood Urine Nitrate Urine Bilirubin Urine Urobilinogen Ur Leukocyte Esterase Urine RBC Urine WBC Ur Squamous Epith Cells Amorphous Sediment Urine Bacteria Ur Culture Indicated? Vol Urine Centrifuged Ethyl Alcohol A.calcoaceticus-baumannii cmplx PCR Chlamy pneumoniae PCR Adenovirus (PCR) Bacteroides fragilis B.parapertussis DNA PCR Kenzie albicans (PCR) Kenzie auris (PCR) C. glabrata (PCR) C. krusei (PCR) C. parapsilosis (PCR) C. tropicalis (PCR) Coronavirus OC43 (PCR) Coronavirus HKU1 (PCR) Coronavirus 229E (PCR) SARS-CoV-2 (PCR) Coronavirus NL63 (PCR) C. neoform/gattii (PCR) Enterobacterales (PCR) E. cloacae complex PCR Enterococc faecalis PCR Enterococc faecium PCR E. coli (PCR) H. influenzae (PCR) Monoscreen Human Metapneumovir PCR Influenza Type A (PCR) Influenza Type B (PCR) Klebsiella aerogenes (PCR) Klebsiella oxytoca PCR Klebsiella pneumoniae List. monocytogenes PCR M. pneumoniae (PCR) N. meningitidis (PCR) Parainfluenza 1 (PCR) Parainfluenza 2 (PCR) Parainfluenza 3 (PCR) Parainfluenza 4 (PCR) Proteus species (PCR) RSV (PCR) Entero/Rhino (PCR) Salmonella spp. (PCR) Serratia marcescens PCR Staphylococcus sp PCR Staph aureus (PCR) mecA/C & MREJ Resist Gene mecA/C-Methicil Resis Gene mcr-1 Colistin Res Gene PCR Staph epidermidis (PCR) Staph lugdunensis PCR S. maltophilia (PCR) Streptococcus sp PCR Group A Strep (PCR) Strep agalactiae (PCR) Strep pneumoniae (PCR) P. aeruginosa (PCR) Marzena/B-Vanco Res Genes blaIMP Car res Gene PCR KPC-Carbap Res Gene PCR blaNDM Car Res Gene PCR OXA-48 Carbapenem Resis Gene (PCR) blaVIM Car Res Gene PCR CTX-M Gene Resistance (PCR) [facility] Medical History CKD stage 3 secondary to diabetes Type 2 diabetes mellitus with hyperglycemia, with long-term current use of insulin CKD stage G3b/A3, GFR 30-44 and albumin creatinine ratio >300 mg/g ASVD (arteriosclerotic vascular disease) Atherosclerotic heart disease Surgical History Anesthesia Cataract (~2018) History of quadruple bypass (~04/2000) Social History marital status: household members: spouse and family pets and animals: No education level: college occupational status: other current occupational exposures/hazards: 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 Febrile illness with recent Klebsiella bacteremia which was untreated, present on admission and active. 2. Non COVID coronavirus with acute hypoxic respiratory failure, present on admission and active. 3. Klebsiella bacteremia, present on admission and active. 4. CAD with bypass grafting, present on admission and stable. 5. Very ?poorly controlled diabetes mellitus 2 with A1c of 13.0, present on admission and active. 6. Hyperlipidemia, present on admission and active. 7. Chronic kidney disease stage 3, present on admission and active. 8. Essential hypertension, present on admission and active. Plan: -follow up urine, continue ceftriaxone 2 g IV Q 24 hours based on Klebsiella cultures. He has positive bacteremia for Klebsiella again. Sources tend to be urinary, or biliary in cases of Klebsiella bacteremia. His urine culture is pending. His LFTs were normal. He will likely need imaging of his liver to rule out hepatic abscess. Given chronic kidney disease we will pursue an ultrasound is abdomen 1st and if this is unrevealing may still need to consider CT of the abdomen. -fever control with Tylenol. -droplet isolation supportive care for coronavirus. -wean oxygen as able. -continue chronic medications for CAD and hyperlipidemia as well as hypertension. -monitor renal function. -continue current insulin. Quality VTE Deep Vein Thrombosis/Pulmonary Embolism Present on Admission: No
[2023-12-21] MEDS: CLOPIDOGREL 75 MG TABLET PO (08:32)
[2023-12-21] MEDS: DOCUSATE 100 MG CAPSULE PO ×2 (08:32→20:43)
[2023-12-21] MEDS: HEPARIN 5,000 UNIT/ML VIAL 5000 UNIT SUBCUT ×2 (08:32→20:45)
[2023-12-21] MEDS: FERROUS SULFATE 325 MG TABLET PO (08:32)
[2023-12-21] MEDS: cefTRIAXone 2,000 MG in SODIUM CHLORIDE 0.9% 100 ML 200 MG IV (08:32)
[2023-12-21] MEDS: ASPIRIN EC 81 MG TABLET PO (08:32)
[2023-12-21] MEDS: CHOLECALCIFEROL (VITAMIN D3) 1,000 UNIT TABLET 2000 UNIT PO (08:32)
[2023-12-21] MEDS: INSULIN NPH 100 UNIT/ML 10ML VIAL 18 UNIT SUBCUT ×2 (08:33→20:43)
[2023-12-21] MEDS: POTASSIUM CHLORIDE 20 MEQ TAB 40 MEQ PO (08:35)
--- NOTE | 2023-12-21 09:44 | DI.US.S_ITS ---
PROCEDURE: US ABDOMEN LIMITED INDICATIONS: Rule out liver abscess TECHNIQUE: Real-time scanning was performed of the abdominal and retroperitoneal organs, with image documentation. COMPARISON: None. FINDINGS: Liver: Liver normal in size overall at 12.6 cm. In the anterior right hepatic lobe, there is a irregular complex cystic structure measuring 5.2 x 2.9 x 4.5 cm without internal vascularity. The left lobe of the liver is not well seen IMPRESSION: 1. Complex cystic structure in the anterior right hepatic lobe. Consider follow-up CT with contrast for further evaluation Approved by: Yuriy Lakhani M.D. on 12/21/2023 at 11:19
--- NOTE | 2023-12-21 15:17 | CM.DANOTE ---
DCP: Case received, EMR reviewed. Unable to meet with patient, for he is in isolation precautions. Attempted calling patient's room and cell phone, n o answer, patient was sleeping, according to nursing. Completed DCP assessment based upon information from nursing, as well as what is in EMR. Patient is a 73 year old male who admitted yesterday morning to the care of the hospitalist team. PCP: Dr. Estes. Payer: confirmed: [employer]. Patient came to the hospital via family vehicle secondary to having ongoing weakness, cyclic fevers. According to notes, patient had spent September and October in the [facility]. It was noted that patient had drank excessive amounts of alcohol, while he was there, and when he returned in November, he started noticing these cyclic fevers. Patient had seen his PCP, and had a hemaglobin A1C of 14. He has been seen recently in the ER and walk in clinic. Patient had some labs done in November, and blood cultures came back as ongoing Klebsiella bacteremia. Patient currently has positive blood cultures. He also has chronic kidney disease. Patient holds diagnosis of febrile illness with klebsiella, also has non-COVID coronovirus. Attempted to meet with patient, but is in isolation, attempted to call room and cell phone, patient sleeping. Confirmed that patient resides here in [place] with spouse. He has been mobile in his room, independent at his baseline. He does not currently have any P.T. orders. P: DCP to continue to follow. Patient most likely will go home when stable, according to hospitalist, should be able to go home on oral ABO, may be consulting with infectious disease, and may also need a dietary consult, due to his diabetes. Betzy Awan RN/[place] Discharge Planning/Care Management CM Discharge Assessment Start: 12/21/23 15:14 Freq: Status: Active Protocol: Document 12/21/23 15:15 (Rec: 12/21/23 15:17 [id number]) Discharge Planning Assessment Assigned [place] Betzy Awan RN/[place] Advance Directives? Yes Advance Directives on File No History Provided By Patient,Medical Record Prior Living Arrangements House Household Members spouse,family Type of transporation used prior to Drives own vehicle admit Independent with ADL's Yes Is patient alert and oriented? Yes Caregiver for Another No Barriers to Discharge No Discharge Plan Home Referrals Initiated None needed Whiteboard Updated in Patient Room with No name and ext. # of [place] Comment Patient is in isolation precautions, did not enter room. Review Status In Process Next Review Type Continued Stay Review
[2023-12-21] MEDS: INSULIN LISPRO 100 UNIT/ML 3ML VIAL SUBCUT (17:51)
[2023-12-21] MEDS: ATORVASTATIN 20 MG TABLET 80 MG PO (20:42)
[2023-12-22] VITALS (9 sets, daily range): BP systolic 102–144; BP diastolic 55–65; PULSE 68–95; RESP 16–20; TEMP 36.6–38.1; O2SAT 95–99
[2023-12-22] MEDS: ACETAMINOPHEN 325 MG TABLET 650 MG PO (00:22)
--- NOTE | 2023-12-22 03:10 | PC.NURSE ---
HS BG= 153, Scheduled 18 units NPH insulin given. BG at 0231= 55, patient asymptomatic. Patient drank YULI, recheck BG 83.
[2023-12-22 04:41] LABS: Add Manual Diff / Slide Review NO; Basophils Absolute Auto 0 /uL (0-100); Basophils Percent Auto 0.2 % (0-2); Eosinophils Absolute Auto 0 /uL (0-450); Eosinophils Percent Auto 0.2 % (2-4); Hematocrit 30.1 % (41-53); Hemoglobin 10.1 g/dL (13.5-17.5); Lymphocytes Absolute Auto 400 /uL (1100-4500); Lymphocytes Percent Auto 3.4 % (25-40); Mean Corpuscular HGB Conc 33.5 % (30-36); Mean Corpuscular Hemoglobin 30.2 PG (26-34); Mean Corpuscular Volume 89.9 fL (80-100); Monocytes Absolute Auto 1800 /uL (0-900); Monocytes Percent Auto 15.8 % (3-14); Neutrophils Absolute Auto 9100 /uL (1500-7000); Neutrophils Percent Auto 80.4 % (50-75); Platelet Count 159 X10^3/uL (150-400); Red Blood Cell Count 3.34 X10^6/uL (4.5-5.9); Red Cell Distribution Width 13.1 % (11.6-14.8); White Blood Cell Count 11.3 X10^3/uL (4.5-11.0)
[2023-12-22 04:55] LABS: BUN Creatinine Ratio 14.6 (6-22); Blood Urea Nitrogen 23 mg/dL (9-20); Calcium 7.9 mg/dL (8.4-10.2); Carbon Dioxide 22 mmol/L (22-32); Chloride 110 mmol/L (98-107); Estimated Glomerular Filt Rate 46 mL/min (>60); Glucose 118 mg/dL (80-110); HEMOLYSIS < 15 (0-50); Potassium 3.3 mmol/L (3.4-5.1); Sodium 137 mmol/L (137-145)
[2023-12-22] MEDS: SODIUM CHLORIDE 0.9% 1,000 ML 84 ML IV (05:20)
[2023-12-22] MEDS: ASPIRIN EC 81 MG TABLET PO (08:40)
[2023-12-22] MEDS: cefTRIAXone 2,000 MG in SODIUM CHLORIDE 0.9% 100 ML 200 MG IV (08:40)
[2023-12-22] MEDS: HEPARIN 5,000 UNIT/ML VIAL 5000 UNIT SUBCUT ×2 (08:41→20:45)
[2023-12-22] MEDS: CLOPIDOGREL 75 MG TABLET PO (08:41)
[2023-12-22] MEDS: DOCUSATE 100 MG CAPSULE PO ×2 (08:41→20:45)
[2023-12-22] MEDS: CHOLECALCIFEROL (VITAMIN D3) 1,000 UNIT TABLET 2000 UNIT PO (08:41)
[2023-12-22] MEDS: FERROUS SULFATE 325 MG TABLET PO (08:41)
[2023-12-22] MEDS: INSULIN NPH 100 UNIT/ML 10ML VIAL 18 UNIT SUBCUT ×2 (08:45→22:09)
--- NOTE | 2023-12-22 10:44 | DI.MRI.S_ITS ---
PROCEDURE: MR ABDOMEN LIVER PROTOCOL INDICATIONS: potential liver abscess TECHNIQUE: Coronal HASTE, axial 2D FLASH in- and [id number]; axial breath-hold T2 FSE. Dynamic axial VIBE during the administration of contrast; post-contrast coronal VIBE or 2D FLASH with fat saturation from the hepatic dome to the iliac crests. Optional diffusion weighted imaging and ADC may be performed. COMPARISON: [facility], US, US ABDOMEN LIMITED, 12/21/2023, 11:04. FINDINGS: Image quality: Diagnostic. There is respiratory motion limiting the quality of the exam. Fine detail is limited. Lung bases: Small dependently layering bilateral pleural effusions. There are median sternotomy wires. Mild cardiomegaly. Liver: There are two abnormal areas immediately adjacent to each other in the inferior right hepatic lobe, one appears as a large cluster of microcysts measuring roughly 5.1 cm in transverse diameter, and the other is a lobulated, but probably unilocular, peripherally enhancing cystic structure measuring about 2.6 x 3.6 cm. There is moderate surrounding parenchymal edema. Gallbladder: The gallbladder is partially decompressed resulting in the appearance of wall thickening and pericholecystic fluid. No visible calculus. Biliary ducts: No visible biliary dilatation and no definite biliary enhancement. Pancreas: Normal to the extent can be seen. Spleen: Size is within normal limits. Adrenal Glands: No adrenal nodules. Kidneys and Ureters: Relative right renal atrophy, cortical hypointensity, and slightly delayed right nephrogram compared to the left. No hydronephrosis. No ureteral dilatation seen. Stomach and Bowel: Partially decompressed stomach. No gross bowel obstruction. Peritoneum: Probably trace perihepatic and perisplenic ascites. Ventral Wall: No hernia. Abdominal Nodes: No visible bulky retroperitoneal adenopathy. Fine detail is limited by respiratory motion and slice selection. Vessels: Aorta and inferior vena cava are normal in size. Bones: No aggressive osseous abnormality. IMPRESSION: Abnormal multi cystic appearance to the inferior right hepatic lobe with surrounding edema. There is likely a dominant fluid collection posteriorly measuring about 2.6 x 3.6 cm which may be a phlegmon or abscess, corresponding to the ultrasound finding. Incidental note of right renal atrophy and decreased right renal function, presumably chronic. Small bilateral pleural effusions. Dictated by: Renetta Grissom M.D. on 12/22/2023 at 11:11 Approved by: Renetta Grissom M.D. on 12/22/2023 at 11:25
[2023-12-22] MEDS: INSULIN LISPRO 100 UNIT/ML 3ML VIAL SUBCUT (12:36)
[2023-12-22] MEDS: POTASSIUM CHLORIDE 20 MEQ TAB 40 MEQ PO (12:36)
--- NOTE | 2023-12-22 18:23 | P.PN_ITS ---
Subjective Subjective Interval history: Patient had temp of 100.6F overnight. He currently feels well. US abd showed complex cystic structure in liver. MRI liver pending. Exam Vital Signs (past 8 hours): - 12/22/23 12:00 12/22/23 16:00 Temperature 98.9 F 98.8 F Pulse Rate 84 89 Respiratory Rate 16 16 Blood Pressure 141/63 H 108/65 Pulse Oximetry 99 99 Oxygen Flow Rate 0 0 Fraction of Inspired Oxygen 21 SaO2/FiO2 Ratio 452 Oxygen Delivery Method Room Air Oxygen Flow Rate 0 Narrative Exam Narrative: NAD, alert and oriented. Fluent speech. Lungs are clear, normal rate and effort. Heart is regular, no murmur gallop or rub. Abdomen is soft, non distended. Extremities are free of edema. Objective Labs 12/22/23 04:27 12/22/23 04:27 Labs: Laboratory Results - last 24 hr 12/22/23 04:27 WBC 11.3 H RBC 3.34 L Hgb 10.1 L Hct 30.1 L MCV 89.9 MCH 30.2 MCHC 33.5 RDW 13.1 Plt Count 159 Neut % (Auto) 80.4 H Lymph % (Auto) 3.4 L [place] % (Auto) 15.8 H Eos % (Auto) 0.2 L Baso % (Auto) 0.2 Neut # (Auto) 9100 H Lymph # (Auto) 400 L [place] # (Auto) 1800 H Eos # (Auto) 0 Baso # (Auto) 0 Sodium 137 Potassium 3.3 L Chloride 110 H Carbon Dioxide 22 BUN 23 H Creatinine 1.57 H Estimated GFR 46 L BUN/Creatinine Ratio 14.6 Glucose 118 H Calcium 7.9 L PFSH Medical History CKD stage 3 secondary to diabetes Type 2 diabetes mellitus with hyperglycemia, with long-term current use of insulin CKD stage G3b/A3, GFR 30-44 and albumin creatinine ratio >300 mg/g ASVD (arteriosclerotic vascular disease) Atherosclerotic heart disease Surgical History Anesthesia Cataract (~2017) History of quadruple bypass (~04/2000) Social History marital status: household members: spouse and family pets and animals: No education level: college occupational status: other current occupational exposures/hazards: 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 Febrile illness with recent Klebsiella bacteremia which was untreated, present on admission and active. 2. Non COVID coronavirus with acute hypoxic respiratory failure, present on admission and active. 3. Klebsiella bacteremia, present on admission and active. 4. CAD with bypass grafting, present on admission and stable. 5. Very ?poorly controlled diabetes mellitus 2 with A1c of 13.0, present on admission and active. 6. Hyperlipidemia, present on admission and active. 7. Chronic kidney disease stage 3, present on admission and active. 8. Essential hypertension, present on admission and active. Plan: -MRI liver shows likely 2x3cm abscess, likely source of bacteremia, urine culture negative -ceftriaxone 2 g IV Q 24 hours based on Klebsiella cultures, spoke with ID and recommend talking with IR about liver abscess aspiration -fever control with Tylenol. -droplet isolation supportive care for coronavirus. -wean oxygen as able. -continue chronic medications for CAD and hyperlipidemia as well as hypertension. -monitor renal function. -continue current insulin. Dispo: Pending possible transfer for liver aspiration. Quality VTE Deep Vein Thrombosis/Pulmonary Embolism Present on Admission: No
[2023-12-22] MEDS: ATORVASTATIN 20 MG TABLET 80 MG PO (20:45)
[2023-12-23] VITALS (14 sets, daily range): BP systolic 130–174; BP diastolic 41–83; PULSE 52–113; RESP 16–23; TEMP 36.9–38.9; O2SAT 93–100
--- NOTE | 2023-12-23 | PATH_ITS ---
Note [facility] Accession Number: [id number] TESTS RESULT FLAG UNITS REF RANGE LAB Clinician Provided Cytology Information No. of containers..01 Other (Miscellaneous) Source: RIGHT LOBE LIVER ABSCESS DIAGNOSIS: RIGHT LOBE LIVER ABSCESS NEGATIVE FOR MALIGNANT CELLS. THIS INTERPRETATION INCLUDES EVALUATION OF A CELL BLOCK. Pathologist ICD10: 01 K75.0 Signed out by: Barrington Chance MD, PhD, Pathologist NPI- [id number] Performed by: Davonte Samaniego, Telephone Lines Repairer ([facility]) Gross description: 01 2.5 CC, RED, CLOUDY RECEIVED: FRESH IN 20 ML SYRINGE.VO /VDU 12/24/2023 1014 Local FLAG LEGEND: L-Low Normal,H-High Normal,LL-Alert Low,HH-Alert High <-Panic Low,>-Panic High,A-Abnormal,AA-Critical Abnormal Performed at: 01 =Z [facility] [address], [place] [address] Noel Menjivar MD, Performed at: 01 [facility] [address], [place], [place] [id number] MD Noel Menjivar MD Phone: [phone]
[2023-12-23] MEDS: SODIUM CHLORIDE 0.9% 1,000 ML 84 ML IV ×2 (01:05→23:45)
[2023-12-23 04:51] LABS: Add Manual Diff / Slide Review NO; Basophils Absolute Auto 0 /uL (0-100); Basophils Percent Auto 0.4 % (0-2); Eosinophils Absolute Auto 100 /uL (0-450); Hematocrit 33.3 % (41-53); Lymphocytes Absolute Auto 600 /uL (1100-4500); Lymphocytes Percent Auto 5.7 % (25-40); Mean Corpuscular HGB Conc 32.9 % (30-36); Mean Corpuscular Hemoglobin 29.7 PG (26-34); Mean Corpuscular Volume 90.4 fL (80-100); Monocytes Absolute Auto 900 /uL (0-900); Neutrophils Absolute Auto 8300 /uL (1500-7000); Neutrophils Percent Auto 83.9 % (50-75); Platelet Count 199 X10^3/uL (150-400); Red Blood Cell Count 3.69 X10^6/uL (4.5-5.9); Red Cell Distribution Width 13.2 % (11.6-14.8); White Blood Cell Count 9.8 X10^3/uL (4.5-11.0)
[2023-12-23 05:32] LABS: BUN Creatinine Ratio 13.5 (6-22); Blood Urea Nitrogen 20 mg/dL (9-20); Calcium 8.3 mg/dL (8.4-10.2); Carbon Dioxide 20 mmol/L (22-32); Chloride 109 mmol/L (98-107); Estimated Glomerular Filt Rate 49 mL/min (>60); Glucose 114 mg/dL (80-110); HEMOLYSIS < 15 (0-50); Potassium 3.8 mmol/L (3.4-5.1); Sodium 139 mmol/L (137-145)
[2023-12-23] MEDS: CLOPIDOGREL 75 MG TABLET PO (08:41)
[2023-12-23] MEDS: HEPARIN 5,000 UNIT/ML VIAL 5000 UNIT SUBCUT ×2 (08:41→21:22)
[2023-12-23] MEDS: CHOLECALCIFEROL (VITAMIN D3) 1,000 UNIT TABLET 2000 UNIT PO (08:41)
[2023-12-23] MEDS: ASPIRIN EC 81 MG TABLET PO (08:41)
[2023-12-23] MEDS: DOCUSATE 100 MG CAPSULE PO ×2 (08:41→21:22)
[2023-12-23] MEDS: cefTRIAXone 2,000 MG in SODIUM CHLORIDE 0.9% 100 ML 200 MG IV (08:41)
[2023-12-23] MEDS: FERROUS SULFATE 325 MG TABLET PO (08:41)
[2023-12-23] MEDS: INSULIN NPH 100 UNIT/ML 10ML VIAL 18 UNIT SUBCUT (08:42)
--- NOTE | 2023-12-23 09:04 | DI.US.S_ITS ---
PROCEDURE: US FINE NEEDLE ASPIRATION INDICATIONS: LIVER ABSCESS ASPIRATION TECHNIQUE: The indications, alternatives, benefits, risks, and complications of the procedure were explained to the patient. Written informed consent was obtained and placed in the chart. The area of interest was examined sonographically and a site was chosen for ultrasound guided percutaneous sampling. The skin was prepared and draped in the usual fashion, and anesthetized with 1% lidocaine infiltrated from the skin down to the lesion. Multiple passes were then performed, with contents emptied into an appropriate pathology specimen container. A bandage was applied to the area of access at completion of the study. COMPARISON: None. FINDINGS: Location(s) of lesion(s) sampled: Right hepatic lobe abscess [place]: 18 gauge hypodermic needles. Number of passes: 2 Medications: 1% lidocaine for local anaesthesia. Complications: None. IMPRESSION: Successful ultrasound-guided right hepatic lobe fine needle aspiration, with cytology results pending. A small amount of red tinged purulent fluid was drained (approximately 8 cc). Dictated by: Zeb Marie M.D. on 12/23/2023 at 14:05 Approved by: Zeb Marie M.D. on 12/23/2023 at 14:06
[2023-12-23] MEDS: ACETAMINOPHEN 325 MG TABLET 650 MG PO (14:25)
[2023-12-23] MEDS: INSULIN LISPRO 100 UNIT/ML 3ML VIAL SUBCUT (14:31)
--- NOTE | 2023-12-23 15:29 | CM.DPC ---
DCP Cont. Reviewed EMR and team rounds for status updates. Pt had a hepatic biopsy today, cytology is pending. No other changes. Plan is d/c home once medically stable. Monitoring for final d/c needs/recommendations.
[2023-12-23] MEDS: ACETAMINOPHEN 325 MG TABLET PO (16:34)
--- NOTE | 2023-12-23 16:52 | PT-IP ANOTE ---
PT eval order received. checked on pt x 2 attempts but pt continues to be not appropriate for PT today. nurse stated that pt has a fever of 102.2, BP: 172/84 and DC of 116 at rest. will f/u tomorrow.
--- NOTE | 2023-12-23 17:59 | P.PN_ITS ---
Subjective Subjective Interval history: Patient quite anxious today and tearful. Spoke with IR and they will do US guided liver aspiration of abscess today. Able to aspirate 8cc of purulent fluid. Patient had temp to 102F with rigors following the procedure so repeat BCx ordered. Exam Vital Signs (past 8 hours): - 12/23/23 11:41 12/23/23 11:45 12/23/23 11:50 Temperature Pulse Rate 52 L 80 80 Respiratory Rate 16 18 20 Blood Pressure 155/43 H 138/41 L Pulse Oximetry 100 98 99 Oxygen Flow Rate 12/23/23 12:00 12/23/23 15:00 12/23/23 16:00 Temperature 98.5 F 98.6 F 102.0 F H Pulse Rate 91 H Respiratory Rate 17 19 Blood Pressure 149/63 H 136/61 Pulse Oximetry 98 96 Oxygen Flow Rate 0 0 12/23/23 16:08 12/23/23 16:34 12/23/23 16:34 Temperature 102.0 F H 102.0 F H 102.0 F H Pulse Rate 113 H Respiratory Rate 23 Blood Pressure 174/83 H Pulse Oximetry 93 Oxygen Flow Rate 0 Fraction of Inspired Oxygen 21 SaO2/FiO2 Ratio 452 Oxygen Delivery Method Room Air Oxygen Flow Rate 0 Narrative Exam Narrative: anxious, tearful, alert and oriented. Fluent speech. Lungs are clear, normal rate and effort. Heart is regular, no murmur gallop or rub. Abdomen is soft, non distended. Extremities are free of edema. Objective Labs 12/23/23 13:31 12/23/23 04:32 Labs: Laboratory Results - last 24 hr 12/23/23 12/23/23 04:32 13:31 WBC 9.8 RBC 3.69 L Hgb 11.0 L Hct 33.3 L 33.0 L MCV 90.4 MCH 29.7 MCHC 32.9 RDW 13.2 Plt Count 199 Neut % (Auto) 83.9 H Lymph % (Auto) 5.7 L [place] % (Auto) 9.0 Eos % (Auto) 1.0 L Baso % (Auto) 0.4 Neut # (Auto) 8300 H Lymph # (Auto) 600 L [place] # (Auto) 900 Eos # (Auto) 100 Baso # (Auto) 0 Sodium 139 Potassium 3.8 Chloride 109 H Carbon Dioxide 20 L BUN 20 Creatinine 1.48 H Estimated GFR 49 L BUN/Creatinine Ratio 13.5 Glucose 114 H Calcium 8.3 L [facility] Medical History CKD stage 3 secondary to diabetes Type 2 diabetes mellitus with hyperglycemia, with long-term current use of insulin CKD stage G3b/A3, GFR 30-44 and albumin creatinine ratio >300 mg/g ASVD (arteriosclerotic vascular disease) Atherosclerotic heart disease Surgical History Anesthesia Cataract (~2017) History of quadruple bypass (~04/2000) Social History marital status: household members: spouse and family pets and animals: No education level: college occupational status: other current occupational exposures/hazards: No (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 Febrile illness with recent Klebsiella bacteremia which was untreated, present on admission and active. 2. Non COVID coronavirus with acute hypoxic respiratory failure, present on admission and active. 3. Anxiety 4. CAD with bypass grafting, present on admission and stable. 5. Poorly controlled diabetes mellitus 2 with A1c of 13.0, present on admission and active. 6. Hyperlipidemia, present on admission and active. 7. Chronic kidney disease stage 3, present on admission and active. 8. Essential hypertension, present on admission and active. Plan: -MRI liver shows likely 2x3cm abscess, likely source of bacteremia, urine culture negative -ceftriaxone 2 g IV Q 24 hours based on Klebsiella cultures, spoke with ID and recommended liver abscess aspiration -underwent successful aspiration of 8cc of purulent fluid on 12/22, cultures pending -fever control with Tylenol. -droplet isolation supportive care for coronavirus. -wean oxygen as able. -continue chronic medications for CAD and hyperlipidemia as well as hypertension. -monitor renal function. -continue current insulin. -ativan PRN for anxiety Dispo: Home in 2 days following improvement in fevers, and return of culture results. Quality VTE Deep Vein Thrombosis/Pulmonary Embolism Present on Admission: No
[2023-12-23] MEDS: ATORVASTATIN 20 MG TABLET 80 MG PO (21:22)
[2023-12-24] VITALS (7 sets, daily range): BP systolic 106–140; BP diastolic 49–62; PULSE 80–95; RESP 16–20; TEMP 36.9–37.7; O2SAT 96–99
[2023-12-24 08:04] LABS: Add Manual Diff / Slide Review NO; Basophils Absolute Auto 0 /uL (0-100); Basophils Percent Auto 0.2 % (0-2); Eosinophils Absolute Auto 0 /uL (0-450); Eosinophils Percent Auto 0.3 % (2-4); Hematocrit 28.6 % (41-53); Hemoglobin 9.4 g/dL (13.5-17.5); Lymphocytes Absolute Auto 500 /uL (1100-4500); Lymphocytes Percent Auto 5.1 % (25-40); Mean Corpuscular Hemoglobin 29.8 PG (26-34); Mean Corpuscular Volume 90.4 fL (80-100); Monocytes Absolute Auto 800 /uL (0-900); Monocytes Percent Auto 8.3 % (3-14); Neutrophils Absolute Auto 8100 /uL (1500-7000); Neutrophils Percent Auto 86.1 % (50-75); Platelet Count 192 X10^3/uL (150-400); Red Blood Cell Count 3.16 X10^6/uL (4.5-5.9); Red Cell Distribution Width 13.2 % (11.6-14.8); White Blood Cell Count 9.5 X10^3/uL (4.5-11.0)
[2023-12-24 08:17] LABS: Alanine Aminotransferase 55 IU/L (<50); Albumin 2.5 g/dL (3.5-5.0); Albumin Globulin Ratio 0.8 (1.0-2.8); Alkaline Phosphatase 188 U/L (38-126); Aspartate Aminotransferase 44 IU/L (17-59); BUN Creatinine Ratio 12.7 (6-22); Bilirubin Total 0.9 mg/dL (0.2-1.3); Blood Urea Nitrogen 21 mg/dL (9-20); Calcium 8.3 mg/dL (8.4-10.2); Carbon Dioxide 23 mmol/L (22-32); Chloride 110 mmol/L (98-107); Estimated Glomerular Filt Rate 43 mL/min (>60); Globulin 3.3 g/dL (1.7-4.1); Glucose 119 mg/dL (80-110); HEMOLYSIS < 15 (0-50); Potassium 4.1 mmol/L (3.4-5.1); Sodium 137 mmol/L (137-145); Total Protein 5.8 g/dL (6.3-8.2)
[2023-12-24] MEDS: HEPARIN 5,000 UNIT/ML VIAL 5000 UNIT SUBCUT ×2 (09:44→20:17)
[2023-12-24] MEDS: FERROUS SULFATE 325 MG TABLET PO (09:44)
[2023-12-24] MEDS: CLOPIDOGREL 75 MG TABLET PO (09:44)
[2023-12-24] MEDS: CHOLECALCIFEROL (VITAMIN D3) 1,000 UNIT TABLET 2000 UNIT PO (09:44)
[2023-12-24] MEDS: ASPIRIN EC 81 MG TABLET PO (09:44)
[2023-12-24] MEDS: DOCUSATE 100 MG CAPSULE PO ×2 (09:44→20:18)
[2023-12-24] MEDS: cefTRIAXone 2,000 MG in SODIUM CHLORIDE 0.9% 100 ML 200 MG IV (09:45)
[2023-12-24] MEDS: INSULIN NPH 100 UNIT/ML 10ML VIAL 18 UNIT SUBCUT ×2 (09:45→20:18)
--- NOTE | 2023-12-24 11:35 | PT.IIE ---
Current Diagnoses Other coronavirus as the cause of diseases classified elsewhere (12/20/23) Surgical History (Last Reviewed 12/20/23 @ 13:33 by Finn Curry MD) Anesthesia Cataract (~2017) History of quadruple bypass (~04/2000) Medical History (Last Reviewed 12/20/23 @ 13:33 by Finn Curry MD) ASVD (arteriosclerotic vascular disease) Atherosclerotic heart disease CKD stage 3 secondary to diabetes CKD stage G3b/A3, GFR 30-44 and albumin creatinine ratio >300 mg/g Type 2 diabetes mellitus with hyperglycemia, with long-term current use of insulin Physical Therapy Inpatient Evaluation/Re-Eval M1 PT/OT-IP Prior Functional Status Start: 12/24/23 13:25 Freq: NEEDED Status: Active Protocol: Document 12/24/23 11:35 AB (Rec: 12/24/23 13:38 AB [id number]) Medical Review Prior Functional Status Medical History Reviewed Yes Communication able to make needs known Mobility and Gait pt stated that he was independent with all mobilities and ambulation without AD Social History Household Members spouse,family Living Arrangements House Number of Stairs To Enter/Railing? pt stated that he and his spouse live on the main level of the house and his daughter, HARSHAD live upstairs not steps to enter the house Home Environment Standard Height Toilet,Walk in Shower Home Equipment Hand Held Shower,Grab Bars Near Toilet,Grab Bars In Shower Additional Social History Comment pt stated that he has access to a FWW M2 PT-IP Current Condition Start: 12/24/23 13:25 Freq: NEEDED Status: Active Protocol: Document 12/24/23 11:35 AB (Rec: 12/24/23 13:38 AB [id number]) Physical Therapy Current Condition Current Condition Evaluation Date 12/24/23 Treatment Diagnosis bacteremia; difficulty in walking Onset Date 12/20/23 M3 PT-IP Subjective Start: 12/24/23 13:25 Freq: NEEDED Status: Active Protocol: Document 12/24/23 11:35 AB (Rec: 12/24/23 13:38 [id number]) Subjective Physical Therapy Visit Type Type Initial Evaluation Visit Start Time 11:35 Visit Stop Time 12:15 Number of VISUAL MERCHANDISER Visits 0 M4 PT-IP Mobility and Gait Start: 12/24/23 13:25 Freq: NEEDED Status: Active Protocol: Document 12/24/23 11:35 AB (Rec: 12/24/23 13:38 AB [id number]) PT-Transfer Assessment Sit to and From Stand Sit to and from Stand Standby Assistance,Contact Guard Assistance,1 Person Assistance,Use of Upper Extremities Equipment Transfer Assistive Device Gait Belt Orthotic/Prosthetic Devices or Brace: No Comments Mobility Comments pt sitting on the chair and agreeable to do PT. obtained PLOF and home set up from pt. completed sit to stand CGA and ambulated in room CGA ~ 25 ft. pt sat back on chair. pt agreeable to ambulate out in the hallway. completed sit to stand SBA and ambulated in the hallway ~ 300 ft SBA to occasional CGA and cues for steadiness and safety. pt tends to move FWW too far forward. presents with slow paced gait pt ambulated back to his room and sat on the chair. positioned pt on the chair. call light and table placed within reach. Gait Assessment Gait Gait Assistance Required: Standby Assistance,Contact Guard Assist,1 Person Assist Distance (Feet) 300 Able to Maintain Weight Bearing Status Yes During Gait Assistive Devices Assistive Device Gait Belt,Front Wheeled Walker Orthotic/Prosthetic Devices or Brace: No Gait Deviations General Gait Pattern Decreased Stride Length, Decreased Feet Clearance Factors Limiting Gait Function Factors Limiting Gait Function Decreased Activity Tolerance, Decreased Strength,Poor Balance,Poor Safety Awareness PT-Balance Assessment Sitting Balance and Reactions Static Sitting Balance Ability Normal Dynamic Sitting Balance Ability Normal Standing Balance and Reactions Static Standing Balance Ability Fair Dynamic Standing Balance Ability Fair Device Used FWW M5 PT-IP Objective Assessments Start: 12/24/23 13:25 Freq: NEEDED Status: Active Protocol: Document 12/24/23 11:35 AB (Rec: 12/24/23 13:38 AB [id number]) Orientation Orientation/Cognition Level of Alertness Alert Orientation Name,Situation Language Function Ability Divehi as Second Language Safety Awareness Decreased Safety Awareness Memory Description Short Term Impaired Gross Range of Motion Lower Extremity ROM Assessment Within Functional Limits Strength Lower Extremity Strength Assessment Within Functional Limits Coordination Assessment Gross Coordination Gross Coordination WNL Muscle Tone Muscle Tone WNL Yes M6 PT-IP Treatment Start: 12/24/23 13:25 Freq: NEEDED Status: Active Protocol: Document 12/24/23 11:35 AB (Rec: 12/24/23 13:38 AB [id number]) Physical Therapy Treatment Education Education Provided Safety M7 PT-IP Assessment and Plan Start: 12/24/23 13:25 Freq: NEEDED Status: Active Protocol: Document 12/24/23 11:35 AB (Rec: 12/24/23 13:38 AB [id number]) PT Summary Assessment and Plan Potential Rehabilitation Potential Fair Status of Condition at Evaluation Stable Summary Impairments Pain,ROM,Strength,Balance, Coordination,Sensation,Tone, Cognition,Bed Mobility, Transfers,Gait,Activity Tolerance Assessment Summary pt is a 73 y/o M who was sent [id number] due to weakness and ferver. pt admitted for bacteremia. pt has droplet precautions for non covid coronavirus infection. pt also found to have liver abscess s/p aspiration yesterday. pt requiring SBA to CGA with transfers and ambulation using fWW. recommending use of FWW at this time due to generalized weakness and for safety. pt agreeable to use FWW and stated that his daughter works in a pharmacy and can get a FWW for him to use. will continue to assess progress. Goals Bed Mobility Goal Independent Transfer Goal Independent,Front Wheeled Walker Gait Goal Independent,Front Wheel Walker Gait Distance 350 Other Goals improve transfes and ambulation without AD/LRAD > 300 ft mod I Days to Meet Goals 10 Frequency of Treatment Frequency Of Treatment Once a Day Treatment Plan Physical Therapy Treatment Plan Bed Mobility Training,Transfer Training,Gait Training, Therapeutic Exercise,Balance Retraining,Discharge Planning, Hot or Cold Pack,Neuromuscular Re-ed,Coordination Retraining ,Manual Therapy Precautions Other Precautions falls Recommendations To Nursing Amount of Assist Needed 1 Person Assist Discharge Recommendations PT Discharge Recommendations Home with Assistance,Home Health Equipment Needed for Home Before FWW Discharge Transportation Needs at Discharge Private Vehicle
[2023-12-24] MEDS: INSULIN LISPRO 100 UNIT/ML 3ML VIAL SUBCUT (12:39)
--- NOTE | 2023-12-24 14:05 | PM.PN.1 ---
Subjective Subjective Interval history: Patient had fever yesterday evening again to 102F. Has not had further fevers today. Awaiting new blood culture results. Prior culture on 12/19 negative at 48 hours. Exam Vital Signs (past 8 hours): - 12/24/23 08:00 12/24/23 09:15 12/24/23 12:00 Temperature 99.1 F 98.7 F Pulse Rate 85 80 Respiratory Rate 18 18 Blood Pressure 126/57 L 128/62 Pulse Oximetry 98 99 Oxygen Delivery Method Room Air Oxygen Flow Rate 0 0 Fraction of Inspired Oxygen 21 SaO2/FiO2 Ratio 452 Oxygen Delivery Method Room Air Oxygen Flow Rate 0 Narrative Exam Narrative: alert and oriented. Fluent speech. Lungs are clear, normal rate and effort. Heart is regular, no murmur gallop or rub. Abdomen is soft, non distended. Extremities are free of edema. Objective Labs 12/24/23 07:39 12/24/23 07:39 Labs: Laboratory Results - last 24 hr 12/24/23 07:39 WBC 9.5 RBC 3.16 L Hgb 9.4 L Hct 28.6 L MCV 90.4 MCH 29.8 MCHC 33.0 RDW 13.2 Plt Count 192 Neut % (Auto) 86.1 H Lymph % (Auto) 5.1 L [place] % (Auto) 8.3 Eos % (Auto) 0.3 L Baso % (Auto) 0.2 Neut # (Auto) 8100 H Lymph # (Auto) 500 L [place] # (Auto) 800 Eos # (Auto) 0 Baso # (Auto) 0 Sodium 137 Potassium 4.1 Chloride 110 H Carbon Dioxide 23 BUN 21 H Creatinine 1.65 H Estimated GFR 43 L BUN/Creatinine Ratio 12.7 Glucose 119 H Calcium 8.3 L Total Bilirubin 0.9 AST 44 ALT 55 H Alkaline Phosphatase 188 H Total Protein 5.8 L Albumin 2.5 L Globulin 3.3 Albumin/Globulin Ratio 0.8 L Procalcitonin 16.0 H PFSH Medical History CKD stage 3 secondary to diabetes Type 2 diabetes mellitus with hyperglycemia, with long-term current use of insulin CKD stage G3b/A3, GFR 30-44 and albumin creatinine ratio >300 mg/g ASVD (arteriosclerotic vascular disease) Atherosclerotic heart disease Surgical History Anesthesia Cataract (~2018) History of quadruple bypass (~04/2000) Social History marital status: household members: spouse and family pets and animals: No education level: college occupational status: other current occupational exposures/hazards: 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 Febrile illness with recent Klebsiella bacteremia which was untreated, present on admission and active. 2. Non COVID coronavirus with acute hypoxic respiratory failure, present on admission and resolved. 3. Anxiety, improving 4. CAD with bypass grafting, present on admission and stable. 5. Poorly controlled diabetes mellitus 2 with A1c of 13.0, present on admission and active. 6. Hyperlipidemia, present on admission and active. 7. Chronic kidney disease stage 3, present on admission and active. 8. Essential hypertension, present on admission and active. Plan: -MRI liver shows likely 2x3cm abscess, likely source of bacteremia, urine culture negative -ceftriaxone 2 g IV Q 24 hours based on Klebsiella cultures, spoke with ID and recommended liver abscess aspiration -underwent successful aspiration of 8cc of purulent fluid on 12/22, cultures pending -had fever to 102F on 12/22, unclear cause and repeat blood cultures pending -fever control with Tylenol. -droplet isolation supportive care for coronavirus. -wean oxygen as able. -continue chronic medications for CAD and hyperlipidemia as well as hypertension. -monitor renal function. -continue current insulin. -ativan PRN for anxiety Dispo: Home in 1 days following improvement in fevers, and return of culture results. Quality VTE Deep Vein Thrombosis/Pulmonary Embolism Present on Admission: No
--- NOTE | 2023-12-24 15:09 | CM.DPC ---
DCP Cont. Reviewed EMR and team rounds for status updates. Pt had a liver biopsy yesterday, cytology is pending, blood cultures are pending. He had spiked a fever last night, but has not had any further fevers during the day today. Plan is to wait for cultures to determine any necessary next steps with d/c antibiotic plan. Cont d/c plan is to d/c home with , will monitor for Home Health other evolving needs for assistance.
[2023-12-24] MEDS: SODIUM CHLORIDE 0.9% 1,000 ML 84 ML IV (17:00)
[2023-12-24] MEDS: ACETAMINOPHEN 325 MG TABLET 975 MG PO (20:17)
[2023-12-24] MEDS: ATORVASTATIN 20 MG TABLET 80 MG PO (20:17)
[2023-12-25] VITALS: BP 102/47; PULSE 81; RESP 18; TEMP 36.7; O2SAT 96
[2023-12-25 04:00] VITALS: BP 140/63; PULSE 89; RESP 18; TEMP 36.7; O2SAT 98
[2023-12-25 04:43] LABS: Add Manual Diff / Slide Review NO; Basophils Absolute Auto 0 /uL (0-100); Basophils Percent Auto 0.5 % (0-2); Eosinophils Absolute Auto 100 /uL (0-450); Eosinophils Percent Auto 1.5 % (2-4); Hematocrit 27.5 % (41-53); Hemoglobin 9.3 g/dL (13.5-17.5); Lymphocytes Absolute Auto 500 /uL (1100-4500); Lymphocytes Percent Auto 6.9 % (25-40); Mean Corpuscular HGB Conc 33.6 % (30-36); Mean Corpuscular Hemoglobin 30.3 PG (26-34); Monocytes Absolute Auto 600 /uL (0-900); Monocytes Percent Auto 8.1 % (3-14); Neutrophils Absolute Auto 6200 /uL (1500-7000); Platelet Count 201 X10^3/uL (150-400); Red Blood Cell Count 3.06 X10^6/uL (4.5-5.9); Red Cell Distribution Width 13.2 % (11.6-14.8); White Blood Cell Count 7.4 X10^3/uL (4.5-11.0)
[2023-12-25 05:06] LABS: BUN Creatinine Ratio 13.1 (6-22); Blood Urea Nitrogen 22 mg/dL (9-20); Calcium 8.2 mg/dL (8.4-10.2); Carbon Dioxide 23 mmol/L (22-32); Chloride 112 mmol/L (98-107); Estimated Glomerular Filt Rate 42 mL/min (>60); Glucose 114 mg/dL (80-110); HEMOLYSIS < 15 (0-50); Potassium 3.7 mmol/L (3.4-5.1); Sodium 137 mmol/L (137-145)
[2023-12-25 05:24] LABS: Procalcitonin 11.3 ng/mL (<0.5)
[2023-12-25] MEDS: SODIUM CHLORIDE 0.9% 1,000 ML 84 ML IV (06:00)
[2023-12-25 07:43] VITALS: BP 131/55; PULSE 98; RESP 16; TEMP 36.4; O2SAT 100
[2023-12-25] MEDS: CLOPIDOGREL 75 MG TABLET PO (09:32)
[2023-12-25] MEDS: DOCUSATE 100 MG CAPSULE PO (09:32)
[2023-12-25] MEDS: ASPIRIN EC 81 MG TABLET PO (09:32)
[2023-12-25] MEDS: FERROUS SULFATE 325 MG TABLET PO (09:32)
[2023-12-25] MEDS: cefTRIAXone 2,000 MG in SODIUM CHLORIDE 0.9% 100 ML 200 MG IV (09:32)
[2023-12-25] MEDS: HEPARIN 5,000 UNIT/ML VIAL 5000 UNIT SUBCUT (09:33)
[2023-12-25] MEDS: INSULIN NPH 100 UNIT/ML 10ML VIAL 18 UNIT SUBCUT (09:33)
[2023-12-25] MEDS: CHOLECALCIFEROL (VITAMIN D3) 1,000 UNIT TABLET 2000 UNIT PO (09:33)
--- NOTE | 2023-12-25 10:23 | DI.RAD.S_ITS ---
PROCEDURE: XR CHEST FOR PICC 1V INDICATIONS: line placement COMPARISON: [facility], CR, XR CHEST 1V, 12/20/2023, 8:32. FINDINGS: PICC was placed by the intravenous therapy team from the left side. Fluoroscopic spot film demonstrates the tip of PICC projecting to the area of cavoatrial junction. IMPRESSION: Tip of PICC projects to the area of cavoatrial junction. No pneumothorax. Approved by: Yuriy Lakhani M.D. on 12/25/2023 at 10:43
[2023-12-25 10:48] LABS: Hgb Solubility Negative (Negative)
--- NOTE | 2023-12-25 11:40 | PT.IPTN ---
Current Diagnoses Other coronavirus as the cause of diseases classified elsewhere (12/20/23) Physical Therapy Treatment Note M2 PT-IP Current Condition Start: 12/24/23 13:25 Freq: NEEDED Status: Active Protocol: Document 12/24/23 11:35 AB (Rec: 12/24/23 13:38 AB [id number]) Physical Therapy Current Condition Current Condition Evaluation Date 12/24/23 Treatment Diagnosis bacteremia; difficulty in walking Onset Date 12/20/23 M3 PT-IP Subjective Start: 12/24/23 13:25 Freq: NEEDED Status: Active Protocol: Document 12/25/23 12:41 TS (Rec: 12/25/23 12:49 TS [id number]) Subjective Physical Therapy Visit Type Type Treatment Note Visit Start Time 11:40 Visit Stop Time 12:03 Number of NAIL MAKING 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 M4 PT-IP Mobility and Gait Start: 12/24/23 13:25 Freq: NEEDED Status: Active Protocol: Document 12/25/23 12:41 TS (Rec: 12/25/23 12:49 TS [id number]) PT-Transfer Assessment Sit to and From Stand Sit to and from Stand Standby Assistance Equipment Transfer Assistive Device None,Gait Belt Orthotic/Prosthetic Devices or Brace: No Comments Mobility Comments STS from bed with no AD SBA, pt is unsteady and reaches for bedrails for balance. Pt would like to ambulate without AD. PT ambulated ~300'SBA with no AD. During ambulation he reaches for serrano and rails for support, has no buckling or LOB. Pt ambulated back to room, was left in chair with all needs met. Gait Assessment Gait Gait Assistance Required: Standby Assistance,Contact Guard Assist,1 Person Assist Distance (Feet) 300 Able to Maintain Weight Bearing Status Yes During Gait Assistive Devices Assistive Device None,Gait Belt Gait Deviations General Gait Pattern Decreased Stride Length, Decreased Feet Clearance Factors Limiting Gait Function Factors Limiting Gait Function Decreased Activity Tolerance, Decreased Strength,Poor Balance,Poor Safety Awareness PT-Balance Assessment Sitting Balance and Reactions Static Sitting Balance Ability Normal Dynamic Sitting Balance Ability Normal Standing Balance and Reactions Static Standing Balance Ability Fair Dynamic Standing Balance Ability Fair M5 PT-IP Objective Assessments Start: 12/24/23 13:25 Freq: NEEDED Status: Active Protocol: Document 12/24/23 11:35 AB (Rec: 12/24/23 13:38 AB [id number]) Orientation Orientation/Cognition Level of Alertness Alert Orientation Name,Situation Language Function Ability Paraguayan as Second Language Safety Awareness Decreased Safety Awareness Memory Description Short Term Impaired Gross Range of Motion Lower Extremity ROM Assessment Within Functional Limits Strength Lower Extremity Strength Assessment Within Functional Limits Coordination Assessment Gross Coordination Gross Coordination WNL Muscle Tone Muscle Tone WNL Yes M6 PT-IP Treatment Start: 12/24/23 13:25 Freq: NEEDED Status: Active Protocol: Document 12/25/23 12:41 TS (Rec: 12/25/23 12:49 TS [id number]) Physical Therapy Treatment Education Education Provided Safety M7 PT-IP Assessment and Plan Start: 12/24/23 13:25 Freq: NEEDED Status: Active Protocol: Document 12/25/23 12:41 TS (Rec: 12/25/23 12:49 TS [id number]) PT Summary Assessment and Plan Potential Rehabilitation Potential Fair Summary Impairments Pain,ROM,Strength,Balance, Coordination,Sensation,Tone, Cognition,Bed Mobility, Transfers,Gait,Activity Tolerance Progress Towards Goals Progressing Toward Goals Assessment Summary Jim is making good progress with his mobility. He is SBA for STS and SBA for ambulation with no AD. He is unsteady at times with gait and no AD, at times he reaches for serrano for support. PT is recommending pt return home with assist and HHPT. Goals Bed Mobility Goal Independent Transfer Goal Independent,Front Wheeled Walker Gait Goal Independent,Front Wheel Walker Gait Distance 350 Other Goals improve transfes and ambulation without AD/LRAD > 300 ft mod I Days to Meet Goals 10 Frequency of Treatment Frequency Of Treatment Once a Day Treatment Plan Physical Therapy Treatment Plan Bed Mobility Training,Transfer Training,Gait Training, Therapeutic Exercise,Balance Retraining,Discharge Planning, Hot or Cold Pack,Neuromuscular Re-ed,Coordination Retraining ,Manual Therapy Precautions Other Precautions falls Recommendations To Nursing Amount of Assist Needed 1 Person Assist Discharge Recommendations PT Discharge Recommendations Home with Assistance,Home Health Equipment Needed for Home Before FWW Discharge Transportation Needs at Discharge Private Vehicle
[2023-12-25 11:56] VITALS: BP 137/66; PULSE 70; RESP 16; TEMP 36.8; O2SAT 99
[2023-12-25] MEDS: INSULIN LISPRO 100 UNIT/ML 3ML VIAL SUBCUT (12:22)
--- NOTE | 2023-12-25 13:07 | CM.DPC ---
DCP Cont. Reviewed EMR and team rounds for status updates. Pt is medically cleared and is ready for d/c home. This DRYING SUPERVISOR contacted our [facility] and sent pt's script and clinicals in order for him to receive daily IV ABO's for the next 2-[address] Torres is already involved. Will updated pt about time once we have a clarification from the infusion center.
--- NOTE | 2023-12-25 18:20 | PM.DS.1 ---
History of Present Illness History of Present Illness Chief complaint: fever, sent by [facility], low bp Narrative: The patient was a 73-year-old male with a history of hypertension, hyperlipidemia, poorly-controlled diabetes, and chronic kidney disease as well as a CABG who presents with fevers and fatigue. The patient was seen in November for fatigue and blood cultures at that time were positive for Klebsiella. Due to his ongoing traveling, contact with him after that encounter was not made. The patient had been in the [facility] for 2 months, was back in November and then went to [place] for a week. He has had intermittent fever since Friday. He denies any skin rash, or lesions. He also denies endemic malaria in the [facility] where he was he has nocturia and polyuria but denies any cloudy urine. He has been having intermittent high fevers for several days controlled for a short time with Tylenol. Blood cultures in November for positive for Klebsiella. He likely has BPH and urinary retention. He denies any mental status changes. No respiratory symptoms including rhinorrhea, cough or shortness a breath. A respiratory PCR was positive for non COVID coronavirus in the ED. He is in droplet isolation. He denies any ill contacts or family. Discharge Providers Provider Date of admission: 12/20/23 10:24 Discharge Date: 12/25/23 Primary care physician: Urbano Estes DO Consults: 12/23/23 09:47 Consult to Physical Therapy Evaluate & Treat Comment: Physician Instructions: Evaluate and Treat 12/25/23 09:33 Consult to Discharge Planning Routine Comment: Discharge provider: Barrington Cardona DO Summary Hospital Course Discharge Diagnosis: 1. Febrile illness with recent Klebsiella bacteremia which was untreated, present on admission and active. 2. Non COVID coronavirus with acute hypoxic respiratory failure, present on admission and resolved. 3. Anxiety, improving 4. CAD with bypass grafting, present on admission and stable. 5. Poorly controlled diabetes mellitus 2 with A1c of 13.0, present on admission and active. 6. Hyperlipidemia, present on admission and active. 7. Chronic kidney disease stage 3, present on admission and active. 8. Essential hypertension, present on admission and active. Plan: -MRI liver shows likely 2x3cm abscess, likely source of bacteremia, urine culture negative -ceftriaxone 2 g IV Q 24 hours based on Klebsiella cultures, spoke with ID and recommended liver abscess aspiration -underwent successful aspiration of 8cc of purulent fluid on 12/22, cultures and PCR pending -fevers resolved -discharged on at least 2 weeks of IV rocephin 2g daily at infusion center via PICC Hospital Course: Admitted for recurrent fevers and found to have klebsiella bacteremia in 4/4 bottles. Sensitive to rocephin so placed on 2g daily. Liver imaging showed likely liver abscess so underwent successful aspiration via US guided needle by IR of 8cc of purulent fluid. Sent for bacterial PCR and culture. His WBC and fevers resolved. Due to AAA could not take a quinolone. PICC line placed and he was discharged to do daily IV infusions at the infusion center for at least 2 weeks. He will f/up with ID at [facility] for follow-up and repeat imaging to see if abscess resolved. Exam Vital Signs (past 8 hours): - 12/25/23 11:56 Temperature 98.2 F Pulse Rate 70 Respiratory Rate 16 Blood Pressure 137/66 Pulse Oximetry 99 Oxygen Flow Rate 0 Fraction of Inspired Oxygen 21 SaO2/FiO2 Ratio 452 Oxygen Delivery Method Room Air Oxygen Flow Rate 0 Narrative Exam Narrative: alert and oriented. Fluent speech. Lungs are clear, normal rate and effort. Heart is regular, no murmur gallop or rub. Abdomen is soft, non distended. Extremities are free of edema. Objective Labs 12/25/23 04:20 12/25/23 04:20 Labs: Laboratory Results - last 24 hr 12/23/23 12/25/23 13:30 04:20 WBC 7.4 RBC 3.06 L Hgb 9.3 L Hct 27.5 L MCV 90.0 MCH 30.3 MCHC 33.6 RDW 13.2 Plt Count 201 Neut % (Auto) 83.0 H Lymph % (Auto) 6.9 L [place] % (Auto) 8.1 Eos % (Auto) 1.5 L Baso % (Auto) 0.5 Neut # (Auto) 6200 Lymph # (Auto) 500 L [place] # (Auto) 600 Eos # (Auto) 100 Baso # (Auto) 0 Hemoglobin Solubility Negative Sodium 137 Potassium 3.7 Chloride 112 H Carbon Dioxide 23 BUN 22 H Creatinine 1.68 H Estimated GFR 42 L BUN/Creatinine Ratio 13.1 Glucose 114 H Calcium 8.2 L Procalcitonin 11.3 H [facility] Medical History CKD stage 3 secondary to diabetes Type 2 diabetes mellitus with hyperglycemia, with long-term current use of insulin CKD stage G3b/A3, GFR 30-44 and albumin creatinine ratio >300 mg/g ASVD (arteriosclerotic vascular disease) Atherosclerotic heart disease Surgical History Anesthesia Cataract (~2017) History of quadruple bypass (~04/2000) Social History marital status: household members: spouse and family pets and animals: No education level: college occupational status: other current occupational exposures/hazards: No (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 You will need to be on at least 2 weeks of IV antibiotics. Please get this daily and follow-up with [facility] infectious disease. Discharge orders & Medications Prescriptions: Continued (DME) OneTouch Verio test strips Strip See Rx Instructions .Route Qty: 200 11RF Rx Instructions: As directed amlodipine 10 mg tablet 10 mg PO DAILY Qty: 90 3RF atorvastatin 80 mg tablet 80 mg PO BEDTIME Qty: 90 3RF cholecalciferol (vitamin D3) 50 mcg (2,000 unit) capsule 50 mcg PO DAILY Qty: 90 3RF clopidogrel 75 mg tablet 75 mg PO DAILY Qty: 90 3RF metoprolol succinate 50 mg tablet extended release 24 hr 50 mg PO DAILY Qty: 90 3RF glipizide 2.5 mg tablet extended release 24hr 2.5 mg PO DAILY Qty: 90 3RF Rx Instructions: must take with food triamcinolone acetonide 0.1 % cream 1 applic topical DAILY Insulin regular sliding scale See Rx Instructions .ROUTE .COMPLEX Qty: 1 0RF Rx Instructions: 2 units for every 50mg/dL of glucose over 200 ferrous sulfate 325 mg (65 mg iron) tablet 325 mg PO DAILY (DME) pen needle, diabetic [1st Tier Unifine Pentips Plus] 31 gauge x 3/16 needle See Rx Instructions .Route Rx Instructions: Checking Blood Sugar BID every other day (DME) BD Insulin Syringe U-500 1/2 mL 31 gauge x 15/64 syringe See Rx Instructions .Route Rx Instructions: Checking BS BID every other day Novolin N NPH U-100 Insulin 100 unit/mL suspension 18 unit SUBCUT BID Qty: 30 3RF Novolin R Regular U100 Insulin 100 unit/mL solution 12 unit SUBCUT TIDWMEAL MDD 30 units Qty: 30 11RF Rx Instructions: before meals aspirin [Aspir-81] 81 mg Tablet,Delayed Release (Dr/Ec) 81 mg PO DAILY losartan 25 mg tablet 25 mg PO DAILY Follow up/Referrals: Ratna Jackson MD [Non-Staff] - 12/31/23 8:30 am Urbano Estes DO [Primary Care Provider] - 2 Weeks Other Ambulatory Orders: Referral to: (Schedule) Timeframe: 2 Weeks Location: Outside Services Ordered By: Barrington Cardona Visit Report/Discharge Packet Instructions: Peripherally Inserted Central Catheter, DI for Bacteremia-Adult Stand Alone Forms: Patient Portal/API, Stroke Signs & Symptoms Discharge Data Primary Care Provider: Urbano Estes VTE Deep Vein Thrombosis/Pulmonary Embolism Present on Admission: No
== END 2023-12-25 14:45 | disposition home or self-care (01) | DRG 441 ==
LOC: ED 10:24 → AC 10:24
PROVIDERS: Radiology Diagnostic Radiology; Student in an Organized Health Care Education/Training Program; Admitting Provider Hospitalist; Emergency Provider Emergency Medicine; PCP Family Medicine; Referring Provider Emergency Medicine; Visit Provider Hospitalist
DX: K75.0 Abscess of liver (principal); J96.01 Acute respiratory failure with hypoxia; R78.81 Bacteremia; B97.29 Other coronavirus as the cause of diseases classified elsewhere; I12.9 Hypertensive chronic kidney disease with stage 1 through stage 4 chronic kidney disease, or unspecified chronic kidney disease; N18.32 Chronic kidney disease, stage 3b; E11.22 Type 2 diabetes mellitus with diabetic chronic kidney disease; E11.65 Type 2 diabetes mellitus with hyperglycemia; E78.5 Hyperlipidemia, unspecified; Z79.82 Long term (current) use of aspirin; Z79.4 Long term (current) use of insulin; Z79.84 Long term (current) use of oral hypoglycemic drugs; Z79.02 Long term (current) use of antithrombotics/antiplatelets; I25.10 Atherosclerotic heart disease of native coronary artery without angina pectoris; Z95.1 Presence of aortocoronary bypass graft; I71.40 Abdominal aortic aneurysm, without rupture, unspecified; B96.1 Klebsiella pneumoniae [K. pneumoniae] as the cause of diseases classified elsewhere; F41.9 Anxiety disorder, unspecified
CPT/HCPCS: 10005; 36415; 36569; 70450; 71045; 74183; 76705; 80048; 80053; 80320; 81001; 82550; 82962; 83036; 83605; 84145; 84484; 85014; 85025; 85660; 86318; 87040; 87070; 87075; 87077; 87086; 87102; 87154; 87186; 87205; 87207; 87633; 87801; 93005; 93010; 94762; 96361; 96365; 96367; 97116; 97162; 99285; A9579; J0136; J0696; J1644; J1815

== ENCOUNTER → 2023-12-31 14:53 | Outpatient (CLI) | payer OTHER, SELFPAY ==
[2023-12-20 11:57] VITALS: BMI 21.1
--- NOTE | 2023-12-31 14:54 | DI.US.S_ITS ---
PROCEDURE: US ABDOMEN LIMITED INDICATIONS: LIVER ABSCESS TECHNIQUE: Real-time scanning was performed of the abdominal and retroperitoneal organs, with image documentation. COMPARISON: [facility], US, US ABDOMEN LIMITED, 12/21/2023, 11:04. [facility], CT, CT ABDOMEN WITHOUT CONTRAST, 12/31/2023, 9:41. FINDINGS: Liver: There is a oval heterogeneously hypoechoic lesion in the inferior right hepatic lobe compatible with abscess measuring 4.4 x 3.6 x 3.2 cm. There is peripheral vascularity. No internal mobile contents identified to suggest mobile fluid. Gallbladder: There is a non mobile gallbladder neck stone. No wall thickening, pericholecystic fluid, or abnormal sonographic Roblero sign. Biliary ducts: Intrahepatic bile ducts are non-dilated. Extrahepatic bile duct caliber measures 6 mm. Normal is 6-7 mm or less in diameter, or 10 mm or less post-cholecystectomy. Pancreas: Visualized portions of the pancreas are sonographically normal. . Miscellaneous: Small amount of ascites near the right hepatic lobe inferiorly. Small bilateral pleural effusions seen. IMPRESSION: Redemonstration of inferior right hepatic lobe abscess without evidence to suggest mobile fluid for drainage. Abscess measures approximately 4.4 x 3.6 x 3.2 cm. Cholelithiasis without evidence for acute cholecystitis. Dictated by: Tye Jones M.D. on 12/31/2023 at 20:56 Approved by: Tye Jones M.D. on 12/31/2023 at 21:00
== END ==
PROVIDERS: PCP Family Medicine; Referring Provider Internal Medicine Infectious Disease; Visit Provider Internal Medicine Infectious Disease
DX: K75.0 Abscess of liver (principal); K80.20 Calculus of gallbladder without cholecystitis without obstruction
CPT/HCPCS: 76705

== ENCOUNTER → 2024-01-13 14:30 | Outpatient (CLI) | payer OTHER, SELFPAY ==
[2023-12-20 11:57] VITALS: BMI 21.1
--- NOTE | 2024-01-13 14:31 | DI.ECHO.S_ITS ---
[facility] : : [address] : : [place] : : [id number] : : Phone: [phone] Echocardiogram Report + + :Name: GAYATHRI MULLEN Study Date: 01/13/2024 Height: 68 in : :[facility] ReadingLocation: Weight: 150 lb : : Gender: Male BSA: 1.8 m2 : :: 1950 Age: 73 yrs BP: 136/66 mmHg: :Reason For Study: LOCALIZED EDEMA : :Ordering Physician: GABRIELA : :ULISSES Performed By: Ros Walls : :Referring: ULISSES OCHOA : + + Interpretation Summary The left ventricle is normal in size and wall thickness. Left ventricular systolic function appears normal without focal wall motion abnormalities. The ejection fraction is estimated to be 60-65%. Diastolic parameters suggest probable normal left ventricular diastolic function and normal filling pressures. The right ventricular systolic pressure is estimated to be at least 37 mmHg based on an estimated right atrial pressure of 3 mm Hg. The left atrium is moderately dilated. There is mild to moderate mitral regurgitation. There is mild aortic regurgitation. The aortic root is mildly dilated. The ascending aorta is mildly enlarged. Procedure: A two-dimensional transthoracic echocardiogram with color flow and Doppler was performed. The study quality was technically adequate. There is no prior echocardiogram noted for this patient. The patient was in sinus rhythm with heart rates between 67-84 bpm during the exam. Left Ventricle: The left ventricle is normal in size and wall thickness. Left ventricular systolic function appears normal without focal wall motion abnormalities. The ejection fraction is estimated to be 60-65%. Diastolic parameters suggest probable normal left ventricular diastolic function and normal filling pressures. Right Ventricle: The right ventricle is mildly dilated. The right ventricular systolic function is normal. Atria: The left atrium is moderately dilated. Right atrial size is normal. There is no Doppler evidence for an interatrial shunt. Mitral Valve: The mitral valve leaflets appear mildly thickened, but open well. There is mild to moderate mitral regurgitation. There are multiple regurgitant jets present. Aortic Valve: The aortic valve is trileaflet. The aortic valve opens well. There is no aortic valve stenosis. There is mild aortic regurgitation. Tricuspid Valve: The tricuspid valve is normal in structure and function. There is mild tricuspid regurgitation. The right ventricular systolic pressure is estimated to be at least 37 mmHg based on an estimated right atrial pressure of 3 mm Hg. Pulmonic Valve: The pulmonic valve leaflets are thin and pliable; valve motion is normal. There is trace pulmonic regurgitation. Great Vessels: The aortic root is mildly dilated. The ascending aorta is mildly enlarged. The IVC is of normal diameter and collapses greater than 50% with a sniff. This suggests a low right atrial pressure of 3 mm Hg. Pericardium/ Pleura There is no pericardial effusion. There is no pleural effusion. MMode/2D Measurements & Calculations LVIDd: 5.0 cm LVOT diam: 2.2 cm LVIDs: 3.4 cm Ao root diam: 4.2 cm FS: 32.8 % asc Aorta Diam: 3.8 cm IVSd: 1.2 cm LVPWd: 0.99 cm LV tamez. diameter/BSA (cm/m^2): 2.8 LV sys. diameter/BSA (cm/m^2): 1.9 LA A2 area: 25.8 cm2 RA long axis: 5.6 cm LA A4 area: 23.3 cm2 RA area: 18.5 cm2 LA length (vol): 5.8 cm RA vol: 51.8 ml LA vol: 88.1 ml RA : 28.6 ml/m2 LA vol index: 48.7 ml/m2 IVC diam: 1.7 cm RVD1 (basal): 4.2 cm RVD2 (mid): 3.5 cm TAPSE: 1.7 cm Doppler Measurements & Calculations Ao V2 max: 100.7 cm/sec LVOT Max Arnol: 87.0 cm/sec Ao V2 mean: 74.5 cm/sec LV V1 max P.0 mmHg Ao max P.1 mmHg LV V1 VTI: 21.8 cm Ao mean P.4 mmHg ROBERT(I,D): 3.8 cm2 Ao V2 VTI: 22.7 cm ROBERT(V,D): 3.4 cm2 sev ratio: 0.96 ROBERT indexed to BSA (cm^2/m^2): 2.1 MV E max arnol: 110.9 cm/sec TR max arnol: 302.1 cm/sec MV A max arnol: 99.8 cm/sec TR max P.5 mmHg MV E/A: 1.1 PA V2 max: 93.8 cm/sec Med Peak E' Arnol: 6.6 cm/sec PA V2 mean: 70.2 cm/sec E/E' med: 16.7 PA mean P.1 mmHg Lat Peak E' Arnol: 8.4 cm/sec PA pr(Accel): 24.2 mmHg E/E' lat: 13.2 E/e' average: 15.0 MV dec time: 0.23 sec SV(LVOT): 86.1 ml Reading Physician:04:33 PM
== END ==
PROVIDERS: PCP Family Medicine; Referring Provider Internal Medicine Infectious Disease; Visit Provider Internal Medicine Infectious Disease
DX: I08.3 Combined rheumatic disorders of mitral, aortic and tricuspid valves (principal); I77.810 Thoracic aortic ectasia; I77.89 Other specified disorders of arteries and arterioles; R60.0 Localized edema
CPT/HCPCS: 93306

== ENCOUNTER → 2024-01-16 09:29 | Outpatient (CLI) | payer OTHER, SELFPAY ==
[2023-12-20 11:57] VITALS: BMI 21.1
[2024-01-16 11:12] LABS: Add Manual Diff / Slide Review NO; Basophils Absolute Auto 100 /uL (0-100); Basophils Percent Auto 2.1 % (0-2); Eosinophils Absolute Auto 200 /uL (0-450); Hematocrit 27.5 % (41-53); Hemoglobin 9.1 g/dL (13.5-17.5); Lymphocytes Absolute Auto 500 /uL (1100-4500); Lymphocytes Percent Auto 13.8 % (25-40); Mean Corpuscular HGB Conc 33.1 % (30-36); Mean Corpuscular Hemoglobin 30.5 PG (26-34); Mean Corpuscular Volume 92.2 fL (80-100); Monocytes Absolute Auto 700 /uL (0-900); Monocytes Percent Auto 17.7 % (3-14); Neutrophils Absolute Auto 2400 /uL (1500-7000); Neutrophils Percent Auto 62.4 % (50-75); Platelet Count 184 X10^3/uL (150-400); Red Blood Cell Count 2.99 X10^6/uL (4.5-5.9); Red Cell Distribution Width 15.1 % (11.6-14.8); White Blood Cell Count 3.9 X10^3/uL (4.5-11.0)
[2024-01-16 11:39] LABS: BUN Creatinine Ratio 14.3 (6-22); Blood Urea Nitrogen 30 mg/dL (9-20); Calcium 8.7 mg/dL (8.4-10.2); Carbon Dioxide 23 mmol/L (22-32); Chloride 108 mmol/L (98-107); Estimated Glomerular Filt Rate 32 mL/min (>60); Glucose 200 mg/dL (80-110); HEMOLYSIS < 15 (0-50); Potassium 4.6 mmol/L (3.4-5.1); Sodium 138 mmol/L (137-145)
[2024-01-16 12:51] LABS: Appearance Urine UA CLEAR; Bilirubin Urine UA NEGATIVE (NEGATIVE); Color Urine UA YELLOW; Glucose Urine UA 3+ g/dL (Negative); Ketones Urine UA NEGATIVE (NEGATIVE); Leukocyte Esterase Urine UA NEGATIVE (NEGATIVE); Nitrite Urine UA NEGATIVE (Negative); Occult Blood Urine UA 1+ (Negative); Protein Urine UA 1+ (Negative); Specific Gravity Urine UA 1.015 (1.000-1.035); Urobilinogen Urine UA 0.2 E.U./dL (0.2)
[2024-01-16 13:07] LABS: Bacteria Urine Occasional (0-1); Culture Indicated Urine Cult Not Indicated; RBC Urine 0-1/HPF (0-5/HPF); Squamous Epithelial Cell Urine 0-1 /HPF (0-5/HPF); Urine Volume 10mL (spun); WBC Urine None Seen (0-5/HPF)
== END ==
PROVIDERS: PCP Family Medicine; Referring Provider Internal Medicine Infectious Disease; Visit Provider Internal Medicine Infectious Disease
DX: N17.9 Acute kidney failure, unspecified (principal)
CPT/HCPCS: 36415; 80048; 81001; 85025

== ENCOUNTER → 2024-01-19 10:27 | Outpatient (CLI) | payer OTHER, SELFPAY ==
[2023-12-20 11:57] VITALS: BMI 21.1
--- NOTE | 2024-01-19 10:28 | DI.US.S_ITS ---
PROCEDURE: US ABDOMEN LIMITED INDICATIONS: LIVER ABSCESS TECHNIQUE: Real-time focused scanning was performed of the abdomen, with image documentation. COMPARISON: [facility], CT, CT ABDOMEN WITHOUT CONTRAST, 12/31/2023, 9:41. [facility], US, US ABDOMEN LIMITED, 12/31/2023, 17:29. FINDINGS: Along the inferior aspect of the right liver, there is a hypoechoic focus seen, without significant increased vascularity measuring 2.2 x 2.3 x 2.2 cm. This is decreased in size compared to the prior ultrasound, when it measured 4.4 x 3.6 x 3.2 cm. No mobile contents can be seen within this hypoechoic focus. The liver demonstrates normal size. The liver demonstrates generalized moderately increased echogenicity. This decreases ultrasound sensitivity for detection of hepatic masses. The main portal vein demonstrates normal size and demonstrates normal appearing, hepatopetal flow. The previously seen gallstone is not seen on the current study. The gallbladder wall is not thickened, measuring 3 mm or less. No specific pericholecystic fluid is seen. The sonographic Roblero sign is negative. There is no biliary dilatation, the common bile duct measures 5 mm. No significant pancreatic abnormality is seen on these images. Bilateral pleural fluid can be seen. IMPRESSION: Decreased size of the previously seen right hepatic fluid collection, which is regarded to be an abscess. Small bilateral pleural effusions can be seen. Dictated by: Irving Moreland M.D. on 01/19/2024 at 12:18 Approved by: Irving Moreland M.D. on 01/19/2024 at 12:21
== END ==
LOC: US 10:27
PROVIDERS: PCP Family Medicine; Referring Provider Internal Medicine Infectious Disease; Visit Provider Internal Medicine Infectious Disease
DX: K75.0 Abscess of liver (principal); J90 Pleural effusion, not elsewhere classified
CPT/HCPCS: 76705

== ENCOUNTER → 2024-01-26 15:49 | Outpatient (CLI) | payer OTHER, SELFPAY ==
[2023-12-20 11:57] VITALS: BMI 21.1
[2024-01-26 16:50] LABS: Hematocrit 31.9 % (41-53); Hemoglobin 10.6 g/dL (13.5-17.5); Mean Corpuscular HGB Conc 33.1 % (30-36); Mean Corpuscular Hemoglobin 30.6 PG (26-34); Mean Corpuscular Volume 92.5 fL (80-100); Platelet Count 159 X10^3/uL (150-400); Red Blood Cell Count 3.45 X10^6/uL (4.5-5.9); Red Cell Distribution Width 15.3 % (11.6-14.8)
[2024-01-26 17:06] LABS: Appearance Urine UA CLEAR; Bilirubin Urine UA NEGATIVE (NEGATIVE); Color Urine UA YELLOW; Glucose Urine UA 3+ g/dL (Negative); Ketones Urine UA NEGATIVE (NEGATIVE); Leukocyte Esterase Urine UA NEGATIVE (NEGATIVE); Nitrite Urine UA NEGATIVE (Negative); Occult Blood Urine UA 1+ (Negative); Protein Urine UA 1+ (Negative); Urobilinogen Urine UA 0.2 E.U./dL (0.2)
[2024-01-26 17:14] LABS: Add Manual Diff / Slide Review YES
[2024-01-26 17:17] LABS: BUN Creatinine Ratio 14.2 (6-22); Blood Urea Nitrogen 23 mg/dL (9-20); Carbon Dioxide 23 mmol/L (22-32); Chloride 108 mmol/L (98-107); Estimated Glomerular Filt Rate 44 mL/min (>60); Glucose 257 mg/dL (80-110); HEMOLYSIS < 15 (0-50); Potassium 4.3 mmol/L (3.4-5.1); Sodium 137 mmol/L (137-145)
[2024-01-26 17:21] LABS: Bacteria Urine None Seen; Culture Indicated Urine Cult Not Indicated; RBC Urine 0-1/HPF (0-5/HPF); Squamous Epithelial Cell Urine None Seen (0-5/HPF); Urine Volume 10mL (spun); WBC Urine None Seen (0-5/HPF)
[2024-01-26 17:32] LABS: White Blood Cell Count 1.6 X10^3/uL (4.5-11.0)
[2024-01-26 17:36] LABS: Neutrophils Absolute Manual 0 /uL (3000-5900); RBC Morphology Normal Morphology; Total Cells Counted 100
== END ==
PROVIDERS: PCP Family Medicine; Referring Provider Internal Medicine Infectious Disease; Visit Provider Internal Medicine Infectious Disease
DX: N17.9 Acute kidney failure, unspecified (principal)
CPT/HCPCS: 36415; 80048; 81001; 85007; 85025

== ENCOUNTER → 2024-01-27 15:18 | Outpatient (CLI) | payer OTHER, SELFPAY ==
[2023-12-20 11:57] VITALS: BMI 21.1
--- NOTE | 2024-01-27 15:19 | DI.US.S_ITS ---
PROCEDURE: US ABDOMEN LIMITED INDICATIONS: LIVER ABSCESS TECHNIQUE: Real-time focused scanning was performed of the abdomen, with image documentation. COMPARISON: [facility], , US ABDOMEN LIMITED, 01/19/2024, 10:31. FINDINGS: Areas seen previously in the right liver lobe is now resolved. Echogenic bands in the area likely due to scarring. IMPRESSION: Prior area of suspected hepatic fluid has resolved sonographically. Dictated by: Singh Cornejo M.D. on 01/27/2024 at 16:39 Approved by: Singh Cornejo M.D. on 01/27/2024 at 16:40
== END ==
PROVIDERS: PCP Family Medicine; Referring Provider Internal Medicine Infectious Disease; Visit Provider Internal Medicine Infectious Disease
DX: K75.0 Abscess of liver (principal)
CPT/HCPCS: 76705

== ENCOUNTER → 2024-01-29 08:55 | Outpatient (CLI) | payer OTHER, SELFPAY ==
[2023-12-20 11:57] VITALS: BMI 21.1
--- NOTE | 2024-02-11 17:55 | DIAB.MNT ---
Initial Diabetes Medical Nutrition Therapy Assessment Name: Jim Nelson Date: 01/29/24 Time: 905-10a Dx: Type II Diabetes Jim presents for initial DM visit. Interested in CGM. On MDI insulin therapy. Last hgA1c 13% Reports PMH of Dm for 1-2 years. Wakes to urinate 2-6x per night. Does not like cheese, nuts, fish or eggs Eye doctor 12 months ago No recent dental Diet Recall: 5-6a: cereal 1/2c cheerios with milk with 3-4 strawberries +/- banana or grapes 12p: 1/2c white rice with veg and pro 6p: 1/2c rice and veggies with pro water 64oz, milk 4oz at night Anthropometrics: Ht: 68 Wt: 152# last PCP Physical Activity: Walks q other day x 1 mi Self-Monitoring Blood Glucose: Checks BID: FBG and post lunch. Reports FBG at 150 at the highest, but no log to review. Reports infrequent lows with symptoms of shaky, sweaty, and cold sweats.Treats with eating fruit. Diabetes Medications: 500mg Metformin BID 2.5 mg Glipizide 18u NPH BID 13u Regular insulin TID Pertinent Labs: hgA1c: >14% 08/2023 13% 12/2023 Past Medical History: (Last Reviewed 12/20/23 @ 13:33 by Finn Curry MD) ASVD (arteriosclerotic vascular disease) Atherosclerotic heart disease CKD stage 3 secondary to diabetes CKD stage G3b/A3, GFR 30-44 and albumin creatinine ratio >300 mg/g Type 2 diabetes mellitus with hyperglycemia, with long-term current use of insulin Nutrition Rx: Plate Method Nutrition Diagnosis: - Food and nutrition related knowledge deficit r/t no previous education aeb pt report Intervention: This participant was very receptive. Provided appropriate educational handouts. Discussed the following topics: Completed intake assessment. Discussed barriers to care. Rule of 15 for lows BG goals and rationale Plate Method, impact of macronutrients on blood sugar, pairing Recommended servings for carbohydrates at meals and snacks CGM brief education Created SMART goals for patient self-care and success. Goals: Check BG BID and bring next visit Add pro t breakfast Follow-up: AMADO CAGLE follow-up in [address]. [address] CGM trial starter kit next visit. Karen Mckinney RDN, [facility][NOTE 3] Certified Diabetes Care and [employer] P: [phone] Thank you for this referral
== END ==
LOC: DIET 08:57
PROVIDERS: PCP Family Medicine; Referring Provider Family Medicine
DX: E11.9 Type 2 diabetes mellitus without complications (principal); Z79.4 Long term (current) use of insulin; Z71.3 Dietary counseling and surveillance; Z79.84 Long term (current) use of oral hypoglycemic drugs

== ENCOUNTER → 2024-02-02 06:56 | Outpatient (CLI) | payer OTHER, SELFPAY ==
[2023-12-20 11:57] VITALS: BMI 21.1
[2024-02-02 08:30] LABS: Hematocrit 34.2 % (41-53); Hemoglobin 11.2 g/dL (13.5-17.5); Mean Corpuscular HGB Conc 32.8 % (30-36); Mean Corpuscular Hemoglobin 30.3 PG (26-34); Mean Corpuscular Volume 92.4 fL (80-100); Platelet Count 157 X10^3/uL (150-400); Red Cell Distribution Width 14.6 % (11.6-14.8); White Blood Cell Count 3.4 X10^3/uL (4.5-11.0)
[2024-02-02 08:31] LABS: Add Manual Diff / Slide Review YES
[2024-02-02 08:57] LABS: C-Reactive Protein Quant < 0.5 mg/dL (<1.0)
[2024-02-02 09:12] LABS: Procalcitonin 0.071 ng/mL (<0.5)
[2024-02-02 12:17] LABS: Neutrophils Absolute Manual 1700 /uL (3000-5900); Poikilocytosis 1+; Total Cells Counted 100
== END ==
LOC: LAB 06:58
PROVIDERS: PCP Family Medicine; Referring Provider Internal Medicine Infectious Disease; Visit Provider Internal Medicine Infectious Disease
DX: D70.2 Other drug-induced agranulocytosis (principal); K75.0 Abscess of liver
CPT/HCPCS: 36415; 84145; 85007; 85025; 86140

== ENCOUNTER → 2024-02-10 06:53 | Outpatient (CLI) | payer OTHER, SELFPAY ==
[2023-12-20 11:57] VITALS: BMI 21.1
[2024-02-10 08:07] LABS: Add Manual Diff / Slide Review NO; Basophils Absolute Auto 100 /uL (0-100); Basophils Percent Auto 2.2 % (0-2); Eosinophils Absolute Auto 300 /uL (0-450); Eosinophils Percent Auto 5.6 % (2-4); Hematocrit 32.3 % (41-53); Hemoglobin 10.6 g/dL (13.5-17.5); Lymphocytes Absolute Auto 1000 /uL (1100-4500); Lymphocytes Percent Auto 15.8 % (25-40); Mean Corpuscular HGB Conc 32.8 % (30-36); Mean Corpuscular Hemoglobin 30.3 PG (26-34); Mean Corpuscular Volume 92.3 fL (80-100); Monocytes Absolute Auto 400 /uL (0-900); Monocytes Percent Auto 6.2 % (3-14); Neutrophils Absolute Auto 4200 /uL (1500-7000); Neutrophils Percent Auto 70.2 % (50-75); Platelet Count 167 X10^3/uL (150-400); Red Cell Distribution Width 14.6 % (11.6-14.8)
[2024-02-10 08:28] LABS: HEMOLYSIS < 15 (0-50); Iron 208 ug/dL (49-181)
[2024-02-10 08:31] LABS: Creatinine Urine Random 96.34 mg/dL; Protein (Total) Urine Random 137 mg/dL (0-12); Protein Creatinine Ratio Urine 1.42 GRAM/24H
[2024-02-10 08:34] LABS: Alanine Aminotransferase 43 IU/L (<50); Albumin Globulin Ratio 1.3 (1.0-2.8); Alkaline Phosphatase 100 U/L (38-126); Aspartate Aminotransferase 33 IU/L (17-59); BUN Creatinine Ratio 21.3 (6-22); Bilirubin Unconjugated 0.6 mg/dL (0.0-1.1); Blood Urea Nitrogen 48 mg/dL (9-20); C-Reactive Protein Quant < 0.5 mg/dL (<1.0); Calcium 8.9 mg/dL (8.4-10.2); Carbon Dioxide 22 mmol/L (22-32); Chloride 111 mmol/L (98-107); Estimated Glomerular Filt Rate 30 mL/min (>60); Glucose 59 mg/dL (80-110); HEMOLYSIS < 15 (0-50); Potassium 3.8 mmol/L (3.4-5.1); Sodium 142 mmol/L (137-145)
[2024-02-10 08:40] LABS: Total Iron Binding Capacity 283 ug/dL (261-462); Transferrin 187 mg/dL (206-381)
[2024-02-10 08:42] LABS: Percent Iron Saturation 73 % (20-50)
[2024-02-10 09:06] LABS: Ferritin 102 ng/mL (18-464)
== END ==
PROVIDERS: PCP Family Medicine; Referring Provider Internal Medicine Infectious Disease; Visit Provider Internal Medicine Infectious Disease
DX: K75.0 Abscess of liver (principal); D70.2 Other drug-induced agranulocytosis; N18.32 Chronic kidney disease, stage 3b; D63.8 Anemia in other chronic diseases classified elsewhere
CPT/HCPCS: 36415; 80048; 80076; 82043; 82570; 82728; 83540; 83550; 84156; 85025; 86140

== ENCOUNTER → 2024-02-12 09:05 | Outpatient (CLI) | payer OTHER, SELFPAY ==
[2023-12-20 11:57] VITALS: BMI 21.1
--- NOTE | 2024-02-12 13:40 | DIAB.FU ---
Follow-up Diabetes Education Assessment Name: Jim Nelson Date: 02/12/24 Time: 90a Dx: Type II Diabetes Jim presents with spouse for Dm follow-up. Interested in CGM sample, however plans to move to [place] next month and would like to complete starter kit with a DM educator in [place], when he is able to f/u. Did add protein to breakfast. Checking BG BID. Self-Monitoring Blood Glucose: Reports FBG <150mg/dl. Reports pre dinner often 170-200mg/dl, indicating likely need for additional meal time insulin. Did not bring BG results for review today. Seldom has lows. Does reports occasional symptoms, does not check BG, but treats with some glucose tabs or fruit. 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 Provided appropriate educational handouts. Discussed the following topics: Recent blood sugar results and trends Medication management Review of general nutrition recommendations and current intake CGM benefits and resources Rule of 15 and s/s lows Created SMART goals for patient self-care and success. Goals: Check BG BID and bring next visit- 50% met Add pro t breakfast- met Find DM educator in [place]- new Try modest increase to 14u mealtime insulin at lunch and dinner- new Practice Rule of 15 prn- new Check BG pre meal and HS until CGM placement- new Follow-up: AMADO CAGLE follow-up prn. Encouraged Jim to call with any questions or follow-up needs prior to finding new Dm educator/moving. Karen Mckinney, AMADO, GURJIT Certified Diabetes Care and Lint [employer]er P: [phone] Thank you for this referral
== END ==
PROVIDERS: PCP Family Medicine; Referring Provider Family Medicine
DX: E11.9 Type 2 diabetes mellitus without complications (principal); Z79.84 Long term (current) use of oral hypoglycemic drugs; Z79.4 Long term (current) use of insulin; Z71.3 Dietary counseling and surveillance
CPT/HCPCS: G0108

== ENCOUNTER → 2024-02-26 06:51 | Outpatient (CLI) | payer OTHER, SELFPAY ==
[2023-12-20 11:57] VITALS: BMI 21.1
[2024-02-26 08:17] LABS: Add Manual Diff / Slide Review NO; Basophils Absolute Auto 100 /uL (0-100); Basophils Percent Auto 2.5 % (0-2); Eosinophils Absolute Auto 600 /uL (0-450); Eosinophils Percent Auto 11.7 % (2-4); Hematocrit 35.6 % (41-53); Hemoglobin 11.8 g/dL (13.5-17.5); Lymphocytes Absolute Auto 800 /uL (1100-4500); Lymphocytes Percent Auto 15.8 % (25-40); Mean Corpuscular Hemoglobin 30.1 PG (26-34); Mean Corpuscular Volume 91.1 fL (80-100); Monocytes Absolute Auto 500 /uL (0-900); Monocytes Percent Auto 9.7 % (3-14); Neutrophils Absolute Auto 3000 /uL (1500-7000); Neutrophils Percent Auto 60.3 % (50-75); Platelet Count 174 X10^3/uL (150-400); Red Blood Cell Count 3.91 X10^6/uL (4.5-5.9); Red Cell Distribution Width 14.6 % (11.6-14.8)
[2024-02-26 08:46] LABS: Alanine Aminotransferase 67 IU/L (<50); Albumin 4.4 g/dL (3.5-5.0); Albumin Globulin Ratio 1.6 (1.0-2.8); Alkaline Phosphatase 121 U/L (38-126); Aspartate Aminotransferase 31 IU/L (17-59); BUN Creatinine Ratio 13.2 (6-22); Bilirubin Total 0.7 mg/dL (0.2-1.3); Bilirubin Unconjugated 0.3 mg/dL (0.0-1.1); Blood Urea Nitrogen 27 mg/dL (9-20); Calcium 9.3 mg/dL (8.4-10.2); Carbon Dioxide 26 mmol/L (22-32); Chloride 104 mmol/L (98-107); Estimated Glomerular Filt Rate 33 mL/min (>60); Globulin 2.8 g/dL (1.7-4.1); Glucose 354 mg/dL (80-110); HEMOLYSIS < 15 (0-50); Potassium 4.4 mmol/L (3.4-5.1); Sodium 136 mmol/L (137-145); Total Protein 7.2 g/dL (6.3-8.2)
== END ==
LOC: LAB 06:56
PROVIDERS: PCP Family Medicine; Referring Provider Internal Medicine Nephrology; Visit Provider Internal Medicine Nephrology
DX: N17.9 Acute kidney failure, unspecified (principal); D70.2 Other drug-induced agranulocytosis; K75.0 Abscess of liver
CPT/HCPCS: 36415; 80048; 80076; 85025